=== PATIENT | female | born 1995 | race Caucasian/White ===

== ENCOUNTER → 2017-01-16 | Outpatient (CLI) | payer BC, OTHER ==
[~2017-01-16] MED LIST: CEFD300C3 PO; DOCU100C37 PO; DOXY1TAB3 PO; FAMO-119 PO; HYDR-2890 PO; HYDR-3720 PO; HYDR-3781 PO; IBP600T1 PO; IBUP-1780 PO; MTF500T PO; ONDN4T PO; OXYC-465 PO; SPRINTEC PO
--- NOTE | 2017-01-16 10:09 | Diagnostic Imaging Report ---
PROCEDURE: US Thyroid. TECHNIQUE: Multiple real-time grayscale images were obtained of the thyroid in various projections. Thyroid ultrasound. INDICATION: Thyromegaly. The previous thyroid ultrasound exam performed on 09/01/2014, noted that the thyroid gland was prominent but homogeneous in appearance. There is no discrete solid or cystic mass within either lobe. On this study the overall appearance of the thyroid gland has not changed significantly. The right lobe measures 5.3 x 1.7 x 1.5 cm while the left lobe is estimated to be 5.4 x 1.6 x 1.6 cm (normal gland size 4 to 5 x 2 x 2 cm or less.) As on the previous study the thyroid gland is homogeneous. There is no discrete solid or cystic mass within either lobe. IMPRESSION: The thyroid gland is prominent but stable in appearance when compared to the prior exam. There is still no discrete solid or cystic mass within either lobe. Dictated by: Dictated on workstation # [id number]
--- NOTE | 2017-01-16 10:30 | Diagnostic Imaging Report ---
PROCEDURE: US Gallbladder. TECHNIQUE: Multiple real-time grayscale images were obtained over the right upper quadrant in various projections. INDICATION: Right upper quadrant pain. FINDINGS: The previous abdominal ultrasound exam performed on 01/04/2016 fails to show any sign of cholelithiasis or acute cholecystitis. On this study, the gallbladder does not appear to be abnormally distended. There is still no evidence for cholelithiasis or acute cholecystitis. The common bile duct is not dilated measuring 3 MM. The liver, pancreas, and right kidney are within normal limits. There is no mass or free fluid collection in the right upper quadrant. IMPRESSION: 1. There is no acute abnormality of the right upper quadrant. 2. If clinical concern regarding an underlying abnormality of the gallbladder persists and further imaging is desired, then nuclear medicine hepatobiliary scan would be recommended for additional study. Dictated by: Dictated on workstation # [id number]
== END ==
LOC: RAD 08:30
PROVIDERS: ATTEND Nurse Practitioner Family
DX: E01.0 Iodine-deficiency related diffuse (endemic) goiter (principal); R10.11 Right upper quadrant pain
CPT/HCPCS: 76536; 76705

== ENCOUNTER → 2017-02-07 | Outpatient (CLI) | payer BC, OTHER ==
[~2017-02-07] MED LIST changes: +CATHETER FLUSH 10 ML SYR IV PRN
--- NOTE | 2017-02-07 15:00 | Diagnostic Imaging Report ---
EXAMINATION: HIDA with EF measurements Indication: Abdominal pain TECHNIQUE: After the intravenous administration of 5.2 mCi of Tc 99m Choletec, imaging over the abdomen was obtained. This was followed by administration of Ensure orally to stimulate intrinsic CCK secretion, followed by continued imaging with ejection fraction measured. FINDINGS: There is homogeneous uptake in the liver with prompt bile duct and gallbladder filling seen. Bowel activity is seen at 50 minutes. Based on further imaging and gallbladder area of interest activity measurements after the administration of Ensure, the gallbladder ejection fraction is estimated at 36%. IMPRESSION: 1. Normal hepatobiliary uptake and Gallbladder filling. 2. Borderline biliary dyskinesia. Borderline abnormal gallbladder ejection fraction. Correlate clinically. Dictated by: Dictated on workstation # [id number]
== END ==
LOC: CARD 12:01
PROVIDERS: ATTEND Internal Medicine
DX: R10.13 Epigastric pain (principal)
CPT/HCPCS: 78227

== ENCOUNTER 2017-03-15 12:57 | Outpatient (CLI) | payer BC ==
[~2017-03-15] VITALS: Ht 157.5 cm; Wt 67.1 kg
[~2017-03-15 12:57] MED LIST changes: -CATHETER FLUSH 10 ML SYR IV PRN
[2017-03-15] MEDS ORDERED: NORG1TAB14 PO (13:06)
== END 2017-03-15 13:26 | disposition home or self-care (01) ==
LOC: PREOP 12:57
PROVIDERS: ATTEND Obstetrics & Gynecology
DX: Z01.818 Encounter for other preprocedural examination (principal); Z11.2 Encounter for screening for other bacterial diseases; N80.0 Endometriosis of uterus; D64.9 Anemia, unspecified
CPT/HCPCS: 87081

== ENCOUNTER 2017-03-22 10:30 | Day surgery (SDC) | payer BC ==
[~2017-03-22] VITALS: Ht 157.5 cm; Wt 67.1 kg
[~2017-03-22 10:30] MED LIST changes: +NORG1TAB14 PO
[2017-03-22] MEDS ORDERED: FAMOTIDINE 20MG/2ML IV (PEPCID) IV ONE (11:00)
[2017-03-22] MEDS ORDERED: NS (IVPB) 50 ML ONE (11:00)
[2017-03-22] MEDS ORDERED: ceFAZolin 1,000 MG (ANCEF) VIAL ONE (11:00)
[2017-03-22] MEDS ORDERED: ONDANSETRON 4 MG/2 ML (SDV) Z0FRAN IV ONE (11:00)
[2017-03-22] MEDS ORDERED: SCOPOLAMINE 1.5 MG (TRANSDERM-SCOP) PATCH TOP ONE (11:00)
[2017-03-22 11:08] LABS: BASOPHILS % (AUTO) 0 % (0-10); EOSINOPHILS # (AUTO) 0.1 10^3/uL (0.0-0.3); EOSINOPHILS % (AUTO) 1 % (0-10); LYMPHOCYTES # (AUTO) 1.3 X 10^3 (1.0-4.0); LYMPHOCYTES % (AUTO) 28 % (12-44); MEAN CORPUSCULAR HEMOGLOBIN 28 PG (25-34); MEAN CORPUSCULAR HGB CONC 33 G/DL (32-36); MEAN CORPUSCULAR VOLUME 86 FL (80-99); MEAN PLATELET VOLUME 10.5 FL (7.4-10.4); MONOCYTES # (AUTO) 0.4 X 10^3 (0.0-1.0); MONOCYTES % (AUTO) 9 % (0-12); NEUTROPHILS # (AUTO) 2.8 X 10^3 (1.8-7.8); NEUTROPHILS % (AUTO) 61 % (42-75); PLATELET COUNT 267 10^3/uL (130-400); RED BLOOD COUNT 4.12 10^6/uL (4.35-5.85); RED CELL DISTRIBUTION WIDTH 13.6 % (10.0-14.5); WHITE BLOOD COUNT 4.6 10^3/uL (4.3-11.0)
[2017-03-22] MEDS ORDERED: ceFAZolin 1,000 MG (ANCEF) VIAL IV ONE (11:15)
[2017-03-22 11:20] LABS: INR 0.9 (0.8-1.4); PROTHROMBIN TIME PATIENT 12.2 SEC (12.2-14.7)
[2017-03-22] MEDS: LACTATED RINGERS 1,000 ML IV PRN ×3 (11:24→14:12)
[2017-03-22 11:26] LABS: ANION GAP 8 MMOL/L (5-14); BLOOD UREA NITROGEN 9 MG/DL (7-18); BUN/CREATININE RATIO 15; CALCIUM 8.6 MG/DL (8.5-10.1); CARBON DIOXIDE 23 MMOL/L (21-32); CHLORIDE 108 MMOL/L (98-107); GFR ESTIMATED > 60; GLUCOSE 84 MG/DL (70-105); POTASSIUM 3.8 MMOL/L (3.6-5.0); SODIUM 139 MMOL/L (135-145)
[2017-03-22] MEDS ORDERED: MIDAZOLAM 2 MG/2 ML (VERSED) VIAL IVP NR (11:35)
[2017-03-22] MEDS ORDERED: ROCURONIUM 50 MG/5 ML (ZEMURON) VIAL IV ONE (11:37)
[2017-03-22] MEDS ORDERED: fentaNYL INJECTION 250 MCG/5 ML AMP ONE (11:37)
[2017-03-22] MEDS ORDERED: proPOfol 200 MG/20 ML (DIPRIVAN) VIAL IV ONE (11:37)
[2017-03-22] MEDS ORDERED: MIDAZOLAM 2 MG/2 ML (VERSED) VIAL ONE (11:37)
[2017-03-22] MEDS ORDERED: LIDOCAINE PF 2% 5 ML (XYLOCAINE) VIAL ONE (11:40)
[2017-03-22] MEDS ORDERED: BUP/EPI 0.5% 1:200,000 (SENSORCAINE) 30 ML VIAL ONE (11:57)
[2017-03-22] MEDS ORDERED: BUPIVACAINE 0.5% 30 ML (SENSORCAINE) VIAL ONE (11:58)
--- NOTE | 2017-03-22 12:01 | Progress Note-Pre Operative ---
Pre-Operative Progress Note H&P Reviewed The H&P was reviewed, patient examined and no changes noted. Time Seen by Provider: 12:00 Date H&P Reviewed: Mar 22, 2017 Time H&P Reviewed: 12:00 Pre-Operative Diagnosis: biliary DyAUBREY Hernandez DO Mar 22, 2017 12:01
[2017-03-22 12:12] VITALS: BP 110/72
[2017-03-22] MEDS ORDERED: DEXAMETHASONE PF 10 MG/ML (DECADRON) VIAL ONE (12:22)
[2017-03-22] MEDS ORDERED: SEVOFLURANE (ULTANE) 15 ML INHAL SOLN ONE (13:25)
[2017-03-22] MEDS ORDERED: ONDANSETRON 4 MG/2 ML (SDV) Z0FRAN ONE (13:25)
[2017-03-22] MEDS ORDERED: LACTATED RINGERS 2,000 ML IV ONE (13:25)
[2017-03-22] MEDS ORDERED: GLYCOPYRROLATE 0.2 MG/ML (ROBINUL) 2 ML VIAL ONE (13:26)
[2017-03-22] MEDS ORDERED: NEOSTIGMINE (BLOXIVERZ ) 1 MG/1ML 10 ML VIAL ONE (13:26)
--- NOTE | 2017-03-22 13:55 | Discharge Instructions ---
Discharge Instructions Discharge Medications New, Converted or Re-Newed RX: Other Patient Instructions Patient Instructions: as directed Return to The Hospital For: as directed Activity & Diet Discharge Diet: No Restrictions Activity as Tolerated: No Orders-Post D/C & Referrals Follow Up Appt: Call to make follow up appt. for patient in 1 weeks. Activity: Rest for 24 hours, than as tolerated. Wound Care: May remove Band-Aid tomorrow. Replace as desired. Keep incisions clean and dry. Wash daily with soap and water. use pain medications as prescribed by Dr. Suzanne nova Diet: As tolerated-Clear Liquids only if nauseated. May shower or tub bathe as desired. No driving for 24 hours, no alcoholic beverages for 24 hours, and nothing per vagina (no tampons, douching, or intercourse) for 2 weeks. Patient to return to the clinic as soon as possible for: Temperature greater than 101F, Severe Pain, Foul discharge from incision or vagina, Excessive Bleeding (more than a period). ALICIA OWENS MD Mar 22, 2017 1:55 pm
--- NOTE | 2017-03-22 13:57 | Progress Note-Post Operative ---
Post-Operative Progess Note Surgeon (s)/Crusher Screen Repairer (s) Surgeon ALICIA OWENS MD Crusher Screen Repairer: Zo Nunez are in Pre-Operative Diagnosis pelvic pelvic pain left ovarian cyst is soft uterine bleeding Post-Operative Diagnosis time with endometriosis and resolved left ovarian corpus luteal cyst Procedure & Operative Findings Date of Procedure 03/22/17 Procedure Performed/Findings upper scopic treatment of endometriosis laparoscopic pelvic adhesio lysis laparoscopic biopsy right ovarian cystic mass Anesthesia Type Gen. Estimated Blood Loss Estimated blood loss (mL): minimal Specimens/Packing Specimens Removed biopsy from right ovary. Endometrial curettings Packing: none ALICIA OWENS MD Mar 22, 2017 1:57 pm
[2017-03-22] MEDS ORDERED: HYDROmorphone (DILAUDID) 2 MG/ML VIAL IVP PRN (14:00)
[2017-03-22] MEDS ORDERED: PROMETHAZINE INJ 25 MG/ML (PHENERGAN) AMP IVP PRN (14:00)
[2017-03-22] MEDS: morphine INJ 10 MG/ML 1ML (SYR OR VIAL) IVP PRN ×2 (14:00→14:06)
[2017-03-22] MEDS ORDERED: ONDANSETRON 4 MG/2 ML (SDV) Z0FRAN IVP PRN ×2 (14:00→15:45)
[2017-03-22] MEDS: MEPERIDINE (DEMEROL) INJ 50 MG/ML IVP PRN ×2 (14:12→14:16)
[2017-03-22] MEDS ORDERED: KETOROLAC 30 MG/ML VIAL IVP ONE (14:30)
[2017-03-22 14:50] VITALS: BP 110/69
[2017-03-22 15:20] VITALS: BP 121/71
[2017-03-22 15:50] VITALS: BP 115/70
[2017-03-22 16:45] VITALS: BP 115/70
--- NOTE | 2017-03-22 22:36 | OPERATIVE REPORT ---
DATE OF SERVICE: 03/22/2017 PREOPERATIVE DIAGNOSES: Chronic pelvic pain, likely endometriosis and dysfunctional uterine bleeding/menorrhagia and history of left ovarian cyst. POSTOPERATIVE DIAGNOSES: Chronic pelvic pain, likely endometriosis and dysfunctional uterine bleeding/menorrhagia and history of left ovarian cyst with resolved left ovarian cyst, endometriosis in the cul de sac and pedunculated mass on the right ovary. OPERATIVE PROCEDURE: Laparoscopic removal of a right ovarian pedunculated mass, destruction of endometriosis, as well as dilation and curettage and adhesiolysis. OPERATIVE DESCRIPTION: With the patient in the supine position, under satisfactory general anesthesia, she had undergone laparoscopic cholecystectomy at the hands of Dr. Prado. Dr. Prado had finished her procedure and turned the patient over to tn. The patient remained supine. She was placed in the dorsal lithotomy position and the perineum exposed. The urinary bladder was emptied with a straight catheter. The weighted speculum placed in the posterior point of the vagina, the cervix exposed and grasped anteriorly with a single tooth tenaculum. The uterus was sounded to 9 cm with uterine sound. The cervix was then serially dilated with Mathieu dilators to accommodate a sharp curette which was introduced and the uterine cavity curettaged in all 4 quadrants to a good uterine cry. That tissue was removed and sent to pathology for permanent section labeled as endometrial curettings. Now, the uterine manipulator was placed, the bulb filled with 4 mL of air. The tenaculum and speculum were removed. The patient was brought into low dorsal lithotomy position. With the ports already in place at the umbilicus and in the right upper quadrant, left upper quadrant and a second right upper quadrant port, the upper quadrant ports were 5 mm, the umbilical port was a 12 mm. Using umbilical port, the laparoscope was introduced. The patient was placed in Trendelenburg, allowing the bowel to spill up out of the pelvis. The pelvis was examined. The uterus was elevated. There were endometriosis implants in the right ovarian fossa. There were adhesions to the posterior lower uterine segment. There were endometriosis implants in the left ovarian fossa. There was a pedunculated cystic appearing mass attached to the right ovary. The laparoscope was rotated. The cecum was examined. The appendix had been removed remotely. Laparoscope was rotated upright and examined; there was no abnormal pathology that appeared. Laparoscope was brought back to the pelvis. Using EndoShears and a grasper, the pedunculated mass on the right ovary was grasped and elevated and removed sharply. That specimen was sent to pathology as a biopsy of right ovarian tissue. The cul de sac was examined. There were adhesions to the posterior lower uterine segment segment. These were taken down with very careful and meticulous dissection, being sure to avoid any thermal or traumatic injury to the bowel and to the other adjacent structures. With that freed, endometriosis implants in the right ovarian fossa were touched with electrocautery to destroy them. There were multiple implants in the range of 8 or 10. There were several implants in the left ovarian fossa; these were touched in the same manner. There was a small Vishal-Masters window in the cul de sac, but there appeared to be no nodular lesions and no overt pathology, so that was left alone. The uterus had some endometriosis implants on its posterior surface. These were touched with electrocautery to destroy them. The ovaries appeared normal, as were the fallopian tubes. There did appear to be a cyst on the left ovary; however, this ended up being a follicular cyst on the caudal pole at the ovary. The larger cyst that had been noted on ultrasound prior to this procedure had resolved. It was thought that this could be a corpus luteal cyst, and that confirmed that suspicion. With the pelvis fully treated for endometriosis with no remaining abnormal pathology, the pelvis was irrigated. The irrigant was aspirated out and the procedure was terminated. The patient was brought out of Trendelenburg. The abdomen was evacuated of the insufflation gas in the process of removing the ports under direct vision. There was no bleeding noted at any of the port sites. The fascia at the umbilical port site was closed with a figure-of-8 suture of 2-0 Vicryl. The skin incision was closed with interrupted sutures with 3-0 nylon. The uterine manipulator bulb was drained. The instrument was removed from the vagina. The speculum was replaced in the vagina, the cervix examined for hemostasis, which was complete. Sponge and needle counts were correct at the end of this procedure. Estimated blood loss for the procedure was minimal. The patient tolerated the procedure well and was transferred to the recovery room in stable condition with plans for discharge home PAR. Job ID: [id number] DocumentID: [id number] Dictated Date: 03/22/2017 13:39:05 Superintendent Transmission Date: 03/22/2017 22:35:50 Dictated By: ALICIA OWENS MD MTDD
--- NOTE | 2017-03-28 11:59 | OPERATIVE REPORT ---
DATE OF SERVICE: PREOPERATIVE DIAGNOSIS: Biliary dyskinesia. POSTOPERATIVE DIAGNOSIS: Biliary dyskinesia. SURGEON: Rebecca Abreu M.D. ANESTHESIA: General. INDICATION FOR PROCEDURE: The patient is a 21-year-old female who complained of abdominal pain, nausea and vomiting. She was noted to have biliary dyskinesia on HIDA scan. Case was discussed with patient. Informed consent was obtained for procedure. The patient also has a history of endometriosis. She consulted with Dr. Spangler who is her funeral arrangement director and he also will perform exploration of the pelvis and do needed procedures. PROCEDURE: Laparoscopic cholecystectomy. DESCRIPTION OF PROCEDURE: The patient was prepped and draped in the usual sterile manner. The abdomen was entered using a 5 mm OptiPort in the left upper quadrant. Pneumoperitoneum was established. A generalized examination of the abdomen was performed. Two other 5 mm ports were placed in the right upper quadrant and a 12 mm port was placed in at the site of the umbilicus. Next, the fundus of the gallbladder was grasped and retracted cephaladly. The infundibulum was grasped and retracted laterally using the [place]. The cystic duct was dissected circumferentially. 3 clips were placed proximal, one distal. The cystic duct was then cut. Next, the attention was placed to the cystic artery. 3 clips were placed proximal, one distal. The cystic artery was then cut. Next using electrocautery, the gallbladder was dissected off the liver bed. After this was done, it was placed in a bag and removed from the abdominal cavity. A second look was taken at the liver bed. Hemostasis looked good. I used a little irrigation and suction. All ports remained in place so Dr. Spangler will then start his part. Job ID: [id number] DocumentID: [id number] Dictated Date: 03/22/2017 13:03:29 Bench Assembler Date: 03/22/2017 22:15:17 Dictated By: REBECCA ABREU DO [facility]ITALJake
== END 2017-03-22 16:45 | disposition home or self-care (01) ==
LOC: SDC 10:30
PROVIDERS: ATTEND Obstetrics & Gynecology
DX: N80.0 Endometriosis of uterus (principal); N80.1 Endometriosis of ovary; N83.02 Follicular cyst of left ovary; N83.8 Other noninflammatory disorders of ovary, fallopian tube and broad ligament; N93.8 Other specified abnormal uterine and vaginal bleeding; N92.0 Excessive and frequent menstruation with regular cycle; N73.6 Female pelvic peritoneal adhesions (postinfective); K81.1 Chronic cholecystitis
CPT/HCPCS: 36415; 80048; 82962; 84703; 85025; 85610; 88304; 88305

== ENCOUNTER 2017-10-19 20:15 | Emergency (ER) | payer BC ==
[~2017-10-19] VITALS: Ht 157.5 cm; Wt 64.9 kg
--- OUTSIDE RECORDS SUMMARY | 2017-10-19 20:22 | XMS REPORT | Continuity of Care Document ---
Author Author [facility] Address Unknown Phone Unavailable Allergies Active Description Code Type Severity Reaction Onset Reported/Identified Relationship to Patient Clinical Status Yes No Known Drug Allergies [id number] Drug Allergy Unknown N/A 03/15/2017 Medications There is no data. Problems Date Dx Coded Attending Type Code Diagnosis Diagnosed By 10/05/2013 ALICIA OWENS MD, Ot 256.4 POLYCYSTIC OVARIES 10/05/2013 ALICIA OWENS MD Ot 543.0 HYPERPLASIA OF APPENDIX 10/05/2013 ALICIA OWENS MD Ot 617.3 PELV PERIT ENDOMETRIOSIS 04/07/2014 ANIYAH EISENBERG DO V04.89 GARDASIL (HPV) DX 08/27/2014 STEPHEN JUAREZ CONTRACTS ADMINISTRATOR Ot 790.29 09/29/2014 ALICIA OWENS MD Ot 568.0 PERITONEAL [id number]/INF 09/29/2014 ALICIA OWENS MD Ot 617.1 OVARIAN ENDOMETRIOSIS 11/22/2014 STEPHEN JUAREZ CONTRACTS ADMINISTRATOR Ot 536.8 11/22/2014 STEPHEN JUAREZ CONTRACTS ADMINISTRATOR Ot 789.00 11/22/2014 STEPHEN JUAREZ CONTRACTS ADMINISTRATOR Ot 625.9 11/22/2014 ALICIA OWENS MD Ot 285.9 11/22/2014 ALICIA OWENS MD Ot 617.9 11/22/2014 ALICIA OWENS MD Ot 625.9 11/22/2014 ALICIA OWENS MD Ot V72.63 11/22/2014 ALICIA OWENS MD Ot V74.8 11/22/2014 STEPHEN JUAREZ CONTRACTS ADMINISTRATOR Ot 790.29 11/22/2014 STEPHEN JUAREZ CONTRACTS ADMINISTRATOR Ot 536.8 11/22/2014 STEPHEN JUAREZ CONTRACTS ADMINISTRATOR Ot 789.00 11/22/2014 STEPHEN JUAREZ CONTRACTS ADMINISTRATOR Ot 625.9 11/22/2014 RGACIELA PUGH, ALICIA Mccartney Ot 285.9 11/22/2014 GRACIELA PUGH, ALICIA Mccartney Ot 617.9 11/22/2014 GRACIELA PUGH, ALICIA Mccartney Ot 625.9 11/22/2014 GRACIELA PUGH, ALICIA Mccartney Ot V72.63 11/22/2014 GRACIELA PUGH, ALICIA Mccartney Ot V74.8 11/22/2014 STEPHEN JUAREZ CONTRACTS ADMINISTRATOR Ot 790.29 2014 STEPHEN JUAREZ CONTRACTS ADMINISTRATOR Ot 536.8 2014 STEPHEN JUAREZ CONTRACTS ADMINISTRATOR Ot 789.00 2014 STEPHEN JUAREZ CONTRACTS ADMINISTRATOR Ot 625.9 2014 GRACIELA PUGH, ALICIA Mccartney Ot 285.9 2014 GRACIELA PUGH, ALICIA Mccartney Ot 617.9 2014 GRACIELA PUGH, ALICIA Mccartney Ot 625.9 2014 GRACIELA PUGH, ALICIA Mccartney Ot V72.63 2014 GRACIELA PUGH, ALICIA Mccartney Ot V74.8 2014 STEPHEN JUAREZ CONTRACTS ADMINISTRATOR Ot 790.29 01/04/2016 SWATHI CRISOSTOMO Ot K21.9 GASTRO-ESOPHAGEAL REFLUX DISEASE WITHOUT 01/04/2016 SWATHI CRISOSTOMO Ot O26.892 OTH RELATED CONDITIONS, SECOND 01/04/2016 SWATHI CRISOSTOMO Ot O99.611 DISEASES OF THE DGSTV SYS COMP 01/04/2016 SWATHI CRISOSTOMO Ot R10.31 RIGHT LOWER QUADRANT PAIN 01/04/2016 SWATHI CRISOSTOMO Ot R11.2 NAUSEA WITH VOMITING, UNSPECIFIED 01/04/2016 SWATHI CRISOSTOMO Ot R19.7 DIARRHEA, UNSPECIFIED 01/04/2016 SWATHI CRISOSTOMO Ot Z3A.15 15 WEEKS GESTATION OF 01/05/2016 SWATHI CRISOSTOMO Ot K21.9 01/05/2016 SWATHI CRISOSTOMO Ot O26.892 01/05/2016 SWATHI CRISOSTOMO Ot O99.611 01/05/2016 SWATHI CRISOSTOMO Ot R10.31 01/05/2016 SWATHI CRISOSTOMO Ot R11.2 01/05/2016 SWATHI CRISOSOTMO Ot R19.7 01/05/2016 SWATHI CRISOSTOMO Ot Z3A.15 01/06/2016 STEPHEN JUAREZ CONTRACTS ADMINISTRATOR Ot 536.8 01/06/2016 STEPHEN JUAREZ CONTRACTS ADMINISTRATOR Ot 789.00 01/06/2016 STEPHEN JUAREZ CONTRACTS ADMINISTRATOR Ot 625.9 01/06/2016 ALICIA OWENS MD Ot 285.9 01/06/2016 ALICIA OWENS MD Ot 617.9 01/06/2016 ALICIA OWENS MD Ot 625.9 01/06/2016 ALICIA OWENS MD Ot V72.63 01/06/2016 ALICIA OWENS MD Ot V74.8 01/06/2016 STEPHEN JUAREZ CONTRACTS ADMINISTRATOR Ot 790.29 01/22/2016 SWATHI CRISOSTOMO Ot O21.0 MILD HYPEREMESIS GRAVIDARUM 01/22/2016 SWATHI CRISOSTOMO Ot O23.42 UNSP INFCT OF URINARY TRACT IN 01/22/2016 SWATHI CRISOSTOMO Ot Z3A.17 17 WEEKS GESTATION OF 02/28/2016 STEPHEN JUAREZ CONTRACTS ADMINISTRATOR Ot 536.8 STOMACH FUNCTION DIS NEC 02/28/2016 STEPHEN JUAREZ CONTRACTS ADMINISTRATOR Ot 789.00 ABDOMINAL PAIN, UNSPECIFIED SITE 02/28/2016 STEPHEN JUAREZ CONTRACTS ADMINISTRATOR Ot 625.9 FEM GENITAL SYMPTOMS NOS 02/28/2016 ALICIA OWENS MD Ot 285.9 ANEMIA NOS 02/28/2016 ALICIA OWENS MD Ot 617.9 ENDOMETRIOSIS NOS 02/28/2016 ALICIA OWENS MD Ot 625.9 FEM GENITAL SYMPTOMS NOS 02/28/2016 ALICIA OWENS MD, Ot V72.63 PRE-PROCEDURAL LABORATORY EXAMINATION 02/28/2016 ALICIA OWENS MD, Ot V74.8 SCREEN-BACTERIAL DIS NEC 02/28/2016 CHARIS JUAREZRICIA L CONTRACTS ADMINISTRATOR Ot 790.29 OTHER ABNORMAL GLUCOSE 02/28/2016 CHARIS JUAREZRICIA L CONTRACTS ADMINISTRATOR Ot 240.9 GOITER NOS 02/28/2016 ALICIA OWENS MD Ot 617.9 ENDOMETRIOSIS NOS 02/28/2016 ALICIA OWENS MD Ot 625.9 FEM GENITAL SYMPTOMS NOS 02/28/2016 ALICIA OWENS MD, Ot V72.84 EXAM PRE-OPERATIVE NOS 02/28/2016 ALICIA OWENS MD Ot V74.8 SCREEN-BACTERIAL DIS NEC 03/02/2016 KARLA JUAREZIA L CONTRACTS ADMINISTRATOR Ot 536.8 STOMACH FUNCTION DIS NEC 03/02/2016 CHARIS JUAREZRICIA L CONTRACTS ADMINISTRATOR Ot 789.00 ABDOMINAL PAIN, UNSPECIFIED SITE 03/02/2016 KARLA JUAREZIA L CONTRACTS ADMINISTRATOR Ot 625.9 FEM GENITAL SYMPTOMS NOS 03/02/2016 ALICIA OWENS MD Ot 285.9 ANEMIA NOS 03/02/2016 ALICIA OWENS MD Ot 617.9 ENDOMETRIOSIS NOS 03/02/2016 ALICIA OWENS MD Ot 625.9 FEM GENITAL SYMPTOMS NOS 03/02/2016 ALICIA OWENS MD Ot V72.63 PRE-PROCEDURAL LABORATORY EXAMINATION 03/02/2016 ALICIA OWENS MD Ot V74.8 SCREEN-BACTERIAL DIS NEC 03/02/2016 CHARIS JUAREZRICIA L CONTRACTS ADMINISTRATOR Ot 790.29 OTHER ABNORMAL GLUCOSE 03/02/2016 CHARIS JUAREZRICIA L CONTRACTS ADMINISTRATOR Ot 240.9 GOITER NOS 03/02/2016 ALICIA OWENS MD Ot 617.9 ENDOMETRIOSIS NOS 03/02/2016 ALICIA OWENS MD Ot 625.9 FEM GENITAL SYMPTOMS NOS 03/02/2016 ALICIA OWENS MD Ot V72.84 EXAM PRE-OPERATIVE NOS 03/02/2016 ALICIA OWENS MD, Ot V74.8 SCREEN-BACTERIAL DIS NEC 05/15/2016 STEPHEN JUAREZ CONTRACTS ADMINISTRATOR Ot 536.8 STOMACH FUNCTION DIS NEC 05/15/2016 STEPHEN JUAREZ CONTRACTS ADMINISTRATOR Ot 789.00 ABDOMINAL PAIN, UNSPECIFIED SITE 05/15/2016 STEPHEN JUAREZ L CONTRACTS ADMINISTRATOR Ot 625.9 FEM GENITAL SYMPTOMS NOS 05/15/2016 ALICIA OWENS MD Ot 285.9 ANEMIA NOS 05/15/2016 ALICIA OWENS MD Ot 617.9 ENDOMETRIOSIS NOS 05/15/2016 ALICIA OWENS MD Ot 625.9 FEM GENITAL SYMPTOMS NOS 05/15/2016 ALICIA OWENS MD, Ot V72.63 PRE-PROCEDURAL LABORATORY EXAMINATION 05/15/2016 ALICIA OWENS MD Ot V74.8 SCREEN-BACTERIAL DIS NEC 05/15/2016 STEPHEN JUAREZ CONTRACTS ADMINISTRATOR Ot 790.29 OTHER ABNORMAL GLUCOSE 05/15/2016 STEPHEN JUAREZ CONTRACTS ADMINISTRATOR Ot 240.9 GOITER NOS 05/15/2016 ALICIA OWENS MD Ot 617.9 ENDOMETRIOSIS NOS 05/15/2016 ALICIA OWENS MD Ot 625.9 FEM GENITAL SYMPTOMS NOS 05/15/2016 ALICIA OWENS MD Ot V72.84 EXAM PRE-OPERATIVE NOS 05/15/2016 ALICIA OWENS MD Ot V74.8 SCREEN-BACTERIAL DIS NEC 05/15/2016 ALICIA OWENS MD Ot O47.03 FALSE LABOR BEFORE 37 COMPLETED WEEKS OF 05/15/2016 ALICIA OWENS MD, Ot Z3A.32 32 WEEKS GESTATION OF 05/17/2016 ALICIA OWENS MD, Ot O47.03 FALSE LABOR BEFORE 37 COMPLETED WEEKS OF 05/17/2016 ALICIA OWENS MD, Ot Z3A.32 32 WEEKS GESTATION OF 06/26/2016 ALICIA OWENS MD, Ot D64.9 ANEMIA, UNSPECIFIED 06/26/2016 GRACIELA MD, ALICIA G Ot O99.013 ANEMIA COMPLICATING , THIRD TRI 06/26/2016 ALICIA OWENS MD, Ot Z01.818 ENCOUNTER FOR OTHER PREPROCEDURAL EXAMIN 06/26/2016 ALICIA OWENS MD, Ot Z11.2 ENCOUNTER FOR SCREENING FOR OTHER BACTER 06/26/2016 ALIICA OWENS MD, Ot Z3A.00 WEEKS OF GESTATION OF NOT SPEC 06/27/2016 ALICIA OWENS MD, Ot D64.9 ANEMIA, UNSPECIFIED 06/27/2016 ALICIA OWENS MD, Ot O99.013 ANEMIA COMPLICATING , THIRD TRI 06/27/2016 ALICIA OWENS MD, Ot Z01.818 ENCOUNTER FOR OTHER PREPROCEDURAL EXAMIN 06/27/2016 ALICIA OWENS MD, Ot Z11.2 ENCOUNTER FOR SCREENING FOR OTHER BACTER 06/27/2016 ALICIA OWENS MD, Ot Z3A.00 WEEKS OF GESTATION OF NOT SPEC 07/01/2016 ALICIA OWENS MD, Ot O34.29 MATERNAL CARE DUE TO UTERINE SCAR FROM O 07/01/2016 ALICIA OWENS MD, Ot O99.824 STREPTOCOCCUS B CARRIER STATE COMPLICATI 07/01/2016 ALICIA OWENS MD Ot Z23 ENCOUNTER FOR IMMUNIZATION 07/01/2016 ALICIA OWENS MD, Ot Z37.0 SINGLE LIVE 07/01/2016 ALICIA OWENS MD, Ot Z3A.39 39 WEEKS GESTATION OF 07/02/2016 ALICIA OWENS MD, Ot D64.9 ANEMIA, UNSPECIFIED 07/02/2016 ALICIA OWENS MD, Ot O99.013 ANEMIA COMPLICATING , THIRD TRI 07/02/2016 ALICIA OWENS MD, Ot Z01.818 ENCOUNTER FOR OTHER PREPROCEDURAL EXAMIN 07/02/2016 ALICIA OWENS MD, Ot Z11.2 ENCOUNTER FOR SCREENING FOR OTHER BACTER 07/02/2016 ALICIA OWENS MD, Ot Z3A.00 WEEKS OF GESTATION OF NOT SPEC 07/02/2016 JUAREZ, STEPHEN L CONTRACTS ADMINISTRATOR Ot 536.8 STOMACH FUNCTION DIS NEC 07/02/2016 STEPHEN JUAREZ CONTRACTS ADMINISTRATOR Ot 789.00 ABDOMINAL PAIN, UNSPECIFIED SITE 07/02/2016 STEPEHN JUAREZ L CONTRACTS ADMINISTRATOR Ot 625.9 FEM GENITAL SYMPTOMS NOS 07/02/2016 ALICIA OWENS MD Ot 285.9 ANEMIA NOS 07/02/2016 ALICIA OWENS MD Ot 617.9 ENDOMETRIOSIS NOS 07/02/2016 ALICIA OWENS MD Ot 625.9 FEM GENITAL SYMPTOMS NOS 07/02/2016 ALICIA OWENS MD Ot V72.63 PRE-PROCEDURAL LABORATORY EXAMINATION 07/02/2016 ALICIA OWENS MD, Ot V74.8 SCREEN-BACTERIAL DIS NEC 07/02/2016 STEPHEN JUAREZ CONTRACTS ADMINISTRATOR Ot 790.29 OTHER ABNORMAL GLUCOSE 07/02/2016 STEPHEN JUAREZ CONTRACTS ADMINISTRATOR Ot 240.9 GOITER NOS 07/02/2016 ALICIA OWENS MD Ot 617.9 ENDOMETRIOSIS NOS 07/02/2016 ALICIA OWENS MD Ot 625.9 FEM GENITAL SYMPTOMS NOS 07/02/2016 ALICIA OWENS MD Ot V72.84 EXAM PRE-OPERATIVE NOS 07/02/2016 ALICIA OWENS MD Ot V74.8 SCREEN-BACTERIAL DIS NEC 09/12/2016 CODY CALIX MD Ot N39.0 URINARY TRACT INFECTION, SITE NOT SPECIF 09/26/2016 CODY CALIX MD Ot N39.0 URINARY TRACT INFECTION, SITE NOT SPECIF 01/17/2017 STEPHEN JUAREZ CONTRACTS ADMINISTRATOR Ot E01.0 IODINE-DEFICIENCY RELATED DIFFUSE (ENDEM 01/17/2017 STEPHEN JUAREZ CONTRACTS ADMINISTRATOR Ot R10.11 RIGHT UPPER QUADRANT PAIN 02/01/2017 STEPHEN JUAREZ L CONTRACTS ADMINISTRATOR Ot E01.0 IODINE-DEFICIENCY RELATED DIFFUSE (ENDEM 02/01/2017 STEPHEN JUAREZ CONTRACTS ADMINISTRATOR Ot R10.11 RIGHT UPPER QUADRANT PAIN 02/07/2017 CODY CALIX MD Ot N39.0 URINARY TRACT INFECTION, SITE NOT SPECIF 02/07/2017 KARLA JUAREZIA L CONTRACTS ADMINISTRATOR Ot E01.0 IODINE-DEFICIENCY RELATED DIFFUSE (ENDEM 02/07/2017 JUAREZSTEPHEN BRUNSON CONTRACTS ADMINISTRATOR Ot R10.11 RIGHT UPPER QUADRANT PAIN 02/08/2017 RAVINDER JUAREZ DO Ot R10.13 EPIGASTRIC PAIN 02/14/2017 LARRYSTEPHEN CONTRACTS ADMINISTRATOR Ot E01.0 IODINE-DEFICIENCY RELATED DIFFUSE (ENDEM 02/14/2017 LARRYSTEPHEN CONTRACTS ADMINISTRATOR Ot R10.11 RIGHT UPPER QUADRANT PAIN 02/14/2017 CODY CALIX MD, Ot N39.0 URINARY TRACT INFECTION, SITE NOT SPECIF 02/14/2017 LARRYSTEPHEN CONTRACTS ADMINISTRATOR Ot E01.0 IODINE-DEFICIENCY RELATED DIFFUSE (ENDEM 02/14/2017 LARRYSTEPHEN CONTRACTS ADMINISTRATOR Ot R10.11 RIGHT UPPER QUADRANT PAIN 02/14/2017 RAVINDER JUAREZ DO Ot R10.13 EPIGASTRIC PAIN 02/20/2017 RAVINDER JUAREZ DO Ot R10.13 EPIGASTRIC PAIN 02/28/2017 RAVINDER JUAREZ DO Ot R10.13 EPIGASTRIC PAIN 03/22/2017 ALICIA OWENS MD, Ot K81.1 CHRONIC CHOLECYSTITIS 03/22/2017 ALICIA OWENS MD, Ot N73.6 FEMALE PELVIC PERITONEAL ADHESIONS (POST 03/22/2017 ALICIA OWENS MD, Ot N80.0 ENDOMETRIOSIS OF UTERUS 03/22/2017 ALICIA OWENS MD, Ot N80.1 ENDOMETRIOSIS OF OVARY 03/22/2017 ALICIA OWENS MD, Ot N83.02 FOLLICULAR CYST OF LEFT OVARY 03/22/2017 ALICIA OWENS MD, Ot N83.8 OTH NONINFLAMMATORY DISORD OF OVARY, FAL 03/22/2017 ALICIA OWENS MD, Ot N92.0 EXCESSIVE AND FREQUENT MENSTRUATION WITH 03/22/2017 ALICIA OWENS MD, Ot N93.8 OTHER SPECIFIED ABNORMAL UTERINE AND VAG 05/06/2017 RAVINDER JUAREZ DO Ot R10.13 EPIGASTRIC PAIN 05/15/2017 CODY CALIX MD Ot N39.0 URINARY TRACT INFECTION, SITE NOT SPECIF 05/15/2017 STEPHEN JUAREZ CONTRACTS ADMINISTRATOR Ot E01.0 IODINE-DEFICIENCY RELATED DIFFUSE (ENDEM 05/15/2017 STEPHEN JUAREZ CONTRACTS ADMINISTRATOR Ot R10.11 RIGHT UPPER QUADRANT PAIN Procedures Code Description Performed By Performed On [id number] EXTRACTION OF POC, LOW CERVICAL, OPEN AP 06/29/2016 Results Test Result Range Complete urinalysis with reflex to culture - 05/15/16 19:15 Urine color determination YELLOW NRG Urine clarity determination CLEAR NRG Urine pH measurement by test strip 7 5-9 Specific gravity of urine by test strip 1.015 1.016- 1.022 Urine protein assay by test strip, semi-quantitative NEGATIVE NEGATIVE Urine glucose detection by automated test strip NEGATIVE NEGATIVE Erythrocytes detection in urine sediment by light microscopy NEGATIVE NEGATIVE Urine ketones detection by automated test strip NEGATIVE NEGATIVE Urine nitrite detection by test strip NEGATIVE NEGATIVE Urine total bilirubin detection by test strip NEGATIVE NEGATIVE Urine urobilinogen measurement by automated test strip (mass/volume) NORMAL NORMAL Urine leukocyte esterase detection by dipstick 1+ NEGATIVE Automated urine sediment erythrocyte count by microscopy (number/high power field) NONE NRG Automated urine sediment leukocyte count by microscopy (number/high power field ) [HPF] NRG Bacteria detection in urine sediment by light microscopy FEW NRG Squamous epithelial cells detection in urine sediment by light microscopy 10-25 NRG Crystals detection in urine sediment by light microscopy NONE NRG Casts detection in urine sediment by light microscopy NONE NRG Mucus detection in urine sediment by light microscopy NEGATIVE NRG Complete urinalysis with reflex to culture YES NRG Bacterial urine culture - 05/15/16 19:15 URINE CULTURE RESULTS <10,000/ML NRG Methicillin resistant Staphylococcus aureus (MRSA) screening culture - 12:05 Methicillin resistant Staphylococcus aureus (MRSA) screening culture NEG NRG Blood type T Indirect antibody screen panel - 06/29/16 06:15 ABO+Rh group AP NRG Transfusion band number [id number] NRG Blood group antibody screen NEGATIVE NRG Complete blood count (CBC) with automated white blood cell (WBC) differential - 06/29/16 06:15 Blood leukocytes automated count (number/volume) 7.2 10*3/uL 4.3-11.0 Blood erythrocytes automated count (number/volume) 3.76 10*6/uL 4.35-5.85 Venous blood hemoglobin measurement (mass/volume) 10.8 g/dL 11.5-16.0 Blood hematocrit (volume fraction) 33 % 35-52 Automated erythrocyte mean corpuscular volume 87 [foz_us] 80-99 Automated erythrocyte mean corpuscular hemoglobin (mass per erythrocyte) 29 pg 25-34 Automated erythrocyte mean corpuscular hemoglobin concentration measurement ( mass/volume) 33 g/dL 32-36 Automated erythrocyte distribution width ratio 15.5 % 10.0-14.5 Automated blood platelet count (count/volume) 181 10*3/uL 130-400 Automated blood platelet mean volume measurement 12.0 [foz_us] 7.4-10.4 Automated blood neutrophils/100 leukocytes 68 % 42-75 Automated blood lymphocytes/100 leukocytes 23 % 12-44 Blood monocytes/100 leukocytes 9 % 0-12 Automated blood eosinophils/100 leukocytes 1 % 0-10 Automated blood basophils/100 leukocytes 0 % 0-10 Blood neutrophils automated count (number/volume) 4.9 10*3 1.8-7.8 Blood lymphocytes automated count (number/volume) 1.6 10*3 1.0-4.0 Blood monocytes automated count (number/volume) 0.6 10*3 0.0-1.0 Automated eosinophil count 0.1 10*3/uL 0.0-0.3 Automated blood basophil count (count/volume) 0.0 10*3/uL 0.0-0.1 Capillary blood glucose measurement by glucometer (mass/volume) - 06/30/16 19: 39 Capillary blood glucose measurement by glucometer (mass/volume) 115 mg/dL 70-110 Methicillin resistant Staphylococcus aureus (MRSA) screening culture - 13:20 Methicillin resistant Staphylococcus aureus (MRSA) screening culture NEG NRG Urine beta human chorionic gonadotropin (hCG) measurement - 03/22/17 10:15 Urine beta human chorionic gonadotropin (hCG) measurement NEGATIVE NEGATIVE Complete blood count (CBC) with automated white blood cell (WBC) differential - 03/22/17 10:55 Blood leukocytes automated count (number/volume) 4.6 10*3/uL 4.3-11.0 Blood erythrocytes automated count (number/volume) 4.12 10*6/uL 4.35-5.85 Venous blood hemoglobin measurement (mass/volume) 11.6 g/dL 11.5-16.0 Blood hematocrit (volume fraction) 35 % 35-52 Automated erythrocyte mean corpuscular volume 86 [foz_us] 80-99 Automated erythrocyte mean corpuscular hemoglobin (mass per erythrocyte) 28 pg 25-34 Automated erythrocyte mean corpuscular hemoglobin concentration measurement ( mass/volume) 33 g/dL 32-36 Automated erythrocyte distribution width ratio 13.6 % 10.0-14.5 Automated blood platelet count (count/volume) 267 10*3/uL 130-400 Automated blood platelet mean volume measurement 10.5 [foz_us] 7.4-10.4 Automated blood neutrophils/100 leukocytes 61 % 42-75 Automated blood lymphocytes/100 leukocytes 28 % 12-44 Blood monocytes/100 leukocytes 9 % 0-12 Automated blood eosinophils/100 leukocytes 1 % 0-10 Automated blood basophils/100 leukocytes 0 % 0-10 Blood neutrophils automated count (number/volume) 2.8 10*3 1.8-7.8 Blood lymphocytes automated count (number/volume) 1.3 10*3 1.0-4.0 Blood monocytes automated count (number/volume) 0.4 10*3 0.0-1.0 Automated eosinophil count 0.1 10*3/uL 0.0-0.3 Automated blood basophil count (count/volume) 0.0 10*3/uL 0.0-0.1 PT panel in platelet poor plasma by coagulation assay - 03/22/17 10:55 Prothrombin time (PT) in platelet poor plasma by coagulation assay 12.2 s 12.2-14.7 INR in platelet poor plasma or blood by coagulation assay 0.9 0.8-1.4 Whole blood basic metabolic panel - 03/22/17 10:55 Serum or plasma sodium measurement (moles/volume) 139 mmol/L 135-145 Serum or plasma potassium measurement (moles/volume) 3.8 mmol/L 3.6-5.0 Serum or plasma chloride measurement (moles/volume) 108 mmol/L 98-107 Carbon dioxide 23 mmol/L 21-32 Serum or plasma anion gap determination (moles/volume) 8 mmol/L 5-14 Serum or plasma urea nitrogen measurement (mass/volume) 9 mg/dL 7-18 Serum or plasma creatinine measurement (mass/volume) 0.60 mg/dL 0.60-1.30 Serum or plasma urea nitrogen/creatinine mass ratio 15 NRG Serum or plasma creatinine measurement with calculation of estimated glomerular filtration rate > NRG Serum or plasma glucose measurement (mass/volume) 84 mg/dL 70-105 Serum or plasma calcium measurement (mass/volume) 8.6 mg/dL 8.5-10.1 Capillary blood glucose measurement by glucometer (mass/volume) - 03/22/17 10: 55 Capillary blood glucose measurement by glucometer (mass/volume) 85 mg/dL 70-110 Encounters ACCT No. Visit Date/Time Discharge Status Pt. Type Provider Facility Loc./Unit Complaint [id number] 04/07/2014 15:26:00 04/07/2014 23:59:59 CLS Outpatient FAINA ANIYAH Stephenson [id number] 03/22/2017 10:30:00 03/22/2017 16:45:00 [facility] HISTORY OF ENDOMETRIOSIS, DUB, MASS IN UTERUS [id number] 03/15/2017 12:57:00 03/15/2017 13:26:00 DIS Outpatient ALICIA OWENS MD [facility] PREOP HISTORY ENDOMETRIOSIS, DUB, MASS IN UTERUS [id number] 02/07/2017 12:01:00 02/07/2017 23:59:59 CLS Outpatient RAVINDER JUAREZ DO [facility] CARD R10.13 [id number] 01/16/2017 08:30:00 01/16/2017 23:59:59 CLS Outpatient STEPHEN JUAREZ [facility] RAD RUQ PAIN, THYROMEGALY [id number] 09/11/2016 13:36:00 09/11/2016 23:59:59 CLS Outpatient OCDY CALIX MD [facility] RAD RECURRENT UTI [id number] 06/29/2016 05:55:00 07/01/2016 13:20:00 DIS Inpatient ALICIA OWENS MD [facility] LDRP BREECH,PRIMARY C- SECTION [id number] 06/26/2016 11:46:00 06/26/2016 12:10:00 DIS Outpatient ALICIA OWENS MD [facility] PREOP BREECH,PRIMARY C -SECTION [id number] 05/15/2016 19:03:00 05/15/2016 20:15:00 DIS Outpatient ALICIA OWENS MD [facility] WSo STOMACH PAIN [id number] 01/22/2016 11:10:00 01/22/2016 13:27:00 DIS Emergency SWATHI CRISOSTOMO [facility] ER VOMITING/16 WEEKS PREG [id number] 01/04/2016 16:41:00 01/04/2016 19:49:00 DIS Emergency SWATHI CRISOSTOMO [facility] ER ABD PAIN [id number] 09/29/2014 11:12:00 09/29/2014 17:30:00 DIS Out[facility] CHRONIC PELVIC PAIN [id number] 09/22/2014 13:21:00 09/22/2014 23:59:59 CLS Outpatient ALICIA OWENS MD [facility] PREOP CHRONIC PELVIC PAIN [id number] 09/01/2014 10:56:00 09/01/2014 23:59:59 CLS Outpatient STEPHEN JUAREZ [facility] RAD THYROMEGALY [id number] 08/09/2014 08:19:00 08/09/2014 23:59:59 CLS Outpatient STEPHEN JUAREZP [facility] LAB HYPERGLYCEMIA [id number] 10/05/2013 06:10:00 10/05/2013 12:58:00 DIS Outpatient [facility] CHRONIC PELVIC PAIN; POSSIBLE ENDOMETRIOSIS [id number] 09/30/2013 09:01:00 09/30/2013 23:59:59 CLS Outpatient ALICIA OWENS MD [facility] PREOP CHRONIC PELVIC PAIN; [id number] 09/15/2013 11:18:00 09/15/2013 23:59:59 CLS Outpatient STEPHEN JUAREZP [facility] RAD PELVIC PAIN [id number] 08/11/2013 10:09:00 08/11/2013 23:59:59 CLS Outpatient STEPHEN JUAREZ [facility] RAD ABD PAIN, DYSPEPSIA
[2017-10-19] MEDS ORDERED: NS IV 1000 ML 1,000 ML ONE (20:26)
[2017-10-19] MEDS ORDERED: ONDANSETRON 4 MG/2 ML (SDV) Z0FRAN ONE (20:26)
[2017-10-19] MEDS ORDERED: HYOSCYAMINE 0.125 MG (LEVSIN) TAB ONE (20:27)
[2017-10-19] MEDS ORDERED: NS IV 1000 ML 1,000 ML IV SCH (20:30)
[2017-10-19] MEDS ORDERED: ONDANSETRON 4 MG/2 ML (SDV) Z0FRAN IVP ONE (20:30)
[2017-10-19] MEDS ORDERED: HYOSCYAMINE 0.125 MG (LEVSIN) TAB PO ONE (20:30)
--- NOTE | 2017-10-19 20:30 | ED GI ---
General Chief Complaint: Abdominal/GI Problems Stated Complaint: N/V/D Source of Information: Patient Exam Limitations: No Limitations History of Present Illness Time Seen By Provider: 20:28 Initial Comments To ER with nausea, vomiting, watery diarrhea without blood or mucus in diffuse intermittent abdominal cramping. Symptoms began yesterday. No fevers or chills. She attempted to take in oral Zofran but states that she vomited after swallowing it. She was seen at urgent care yesterday for the same symptoms diagnosed with urinary tract infection and given Macrobid but she states that she is unable to take the Macrobid due to the nausea. Timing/Duration: 1-2 Days Severity/Quality: Cramping Location: Generalized Abdomen Radiation: No Radiation Allergies and Home Medications Allergies Coded Allergies: No Known Drug Allergies (Unverified , 03/15/17) Home Medications Norgestimate-Ethinyl Estradiol 1 Each Tablet, 1 EACH PO DAILY, (Reported) Review of Systems Constitutional: see HPI, No chills, No fever EENTM: No Symptoms Reported Respiratory: No Symptoms Reported Cardiovascular: No Symptoms Reported Gastrointestinal: See HPI, Diarrhea, Nausea, Vomiting Genitourinary: No Symptoms Reported Musculoskeletal: no symptoms reported Skin: no symptoms reported Psychiatric/Neurological: No Symptoms Reported Endocrine: No Symptoms Reported Hematologic/Lymphatic: No Symptoms Reported Past Xdlshcg-Cyqkex-Ynbnjs Hx Patient Social History Recent Foreign Travel: No Contact w/Someone Who Travel: No Recent Hopitalizations: No Seasonal Allergies Seasonal Allergies: No Surgeries Surgeries: Adenoidectomy, Appendectomy, Section, Tonsillectomy Reproductive System Hx Reproductive Disorders: Yes Sexually Transmitted Disease: No HIV/AIDS: No Female Reproductive Disorders: Endometriosis, Polycystic Ovarian Dis Genitourinary Genitourinary Disorders: UTI-Chronic HEENT Loss of Vision: Bilateral Hearing Impairment: Denies Blood Transfusions Adverse Reaction to a Blood Tr: No (N/A) Family Medical History Significant Family History: No Pertinent Family Hx Family Medial History: Alcoholism grandparents Cardiovascular disease grandparents Diabetes mellitus grandparents Hypertension grandparents Myocardial infarction grandparents Physical Exam Vital Signs VS - Last 72 Hours, by Label 10/19/17 10/19/17 10/19/17 10/19/17 20:20 21:00 21:30 22:00 Temp 98.8 Pulse 102 95 95 86 Resp 18 18 18 18 B/P (MAP) 132/76 (94) 128/70 100/58 105/58 Pulse Ox 98 99 98 99 O2 Delivery Room Air Room Air Room Air Room Air 10/19/17 22:30 Pulse 94 Resp 18 B/P (MAP) 108/61 Pulse Ox 99 O2 Delivery Room Air Capillary Refill : General Appearance: WD/WN, no apparent distress HEENT: PERRL/EOMI, normal ENT inspection Neck: non-tender, full range of motion Respiratory: normal breath sounds, no respiratory distress, no accessory muscle use Cardiovascular: regular rate, rhythm, no murmur Gastrointestinal: normal bowel sounds, non tender, soft Neurologic/Psychiatric: alert, normal mood/affect, oriented x 3 Skin: normal color, warm/dry Focused Exam Evaluation Lactate Level Laboratory Tests 10/19/17 21:10: Lactic Acid Level 0.73 Lactic Acid Level Laboratory Tests Test 10/19/17 21:10 Lactic Acid Level 0.73 MMOL/L (0.50-2.00) Progress/Results/Core Measures Results/Orders Lab Results Laboratory Tests Test 10/19/17 20:23 10/19/17 20:31 10/19/17 21:10 Range/Units White Blood Count 21.6 H 4.3-11.0 10^3/uL Red Blood Count 4.83 4.35-5.85 10^6/uL Hemoglobin 13.7 11.5-16.0 G/DL Hematocrit 39 35-52 % Mean Corpuscular Volume 81 80-99 FL Mean Corpuscular Hemoglobin 28 25-34 PG Mean Corpuscular Hemoglobin Concent 35 32-36 G/DL Red Cell Distribution Width 14.2 10.0-14.5 % Platelet Count 301 130-400 10^3/uL Mean Platelet Volume 10.0 7.4-10.4 FL Neutrophils (%) (Auto) 90 H 42-75 % Lymphocytes (%) (Auto) 5 L 12-44 % Monocytes (%) (Auto) 4 0-12 % Eosinophils (%) (Auto) 0 0-10 % Basophils (%) (Auto) 0 0-10 % Neutrophils # (Auto) 19.5 H 1.8-7.8 X 10^3 Lymphocytes # (Auto) 1.2 1.0-4.0 X 10^3 Monocytes # (Auto) 0.9 0.0-1.0 X 10^3 Eosinophils # (Auto) 0.0 0.0-0.3 10^3/uL Basophils # (Auto) 0.0 0.0-0.1 10^3/uL Neutrophils % (Manual) 73 % Lymphocytes % (Manual) 7 % Monocytes % (Manual) 4 % Eosinophils % (Manual) 2 % Basophils % (Manual) 0 % Band Neutrophils 14 % Blood Morphology Comment NORMAL Sodium Level 140 135-145 MMOL/L Potassium Level 4.1 3.6-5.0 MMOL/L Chloride Level 106 98-107 MMOL/L Carbon Dioxide Level 21 21-32 MMOL/L Anion Gap 13 5-14 MMOL/L Blood Urea Nitrogen 14 7-18 MG/DL Creatinine 0.68 0.60-1.30 MG/DL Estimat Glomerular Filtration Rate > 60 BUN/Creatinine Ratio 21 Glucose Level 107 H 70-105 MG/DL Calcium Level 9.5 8.5-10.1 MG/DL Total Bilirubin 0.5 0.1-1.0 MG/DL Aspartate Amino Transf (AST/SGOT) 20 5-34 U/L Alanine Aminotransferase (ALT/SGPT) 19 0-55 U/L Alkaline Phosphatase 112 40-136 U/L C-Reactive Protein High Sensitivity 0.23 0.00-0.50 MG/DL Total Protein 7.9 6.4-8.2 GM/DL Albumin 4.5 3.2-4.5 GM/DL Lipase 10 8-78 U/L Urine Color JESÚS H Urine Clarity SLIGHTLY CLOUDY Urine pH 5 5-9 Urine Specific [place] 1.030 H 1.016-1.022 Urine Protein 2+ H NEGATIVE Urine Glucose (UA) NEGATIVE NEGATIVE Urine Ketones 1+ H NEGATIVE Urine Nitrite POSITIVE H NEGATIVE Urine Bilirubin 2+ H NEGATIVE Urine Urobilinogen 4 H NORMAL MG/DL Urine Leukocyte Esterase 1+ H NEGATIVE Urine RBC (Auto) 1+ H NEGATIVE Urine RBC NONE /HPF Urine WBC 5-10 H /HPF Urine Squamous Epithelial Cells 5-10 /HPF Urine Crystals NONE /LPF Urine Bacteria FEW H /HPF Urine Casts NONE /LPF Urine Mucus SMALL H /LPF Urine Culture Indicated YES Urine Test NEGATIVE NEGATIVE Lactic Acid Level 0.73 0.50-2.00 MMOL/L My Orders Orders - ARIANA BENITEZ ACTUARIAL INTERN Cbc With Automated Diff (10/19/17 20:26) Comprehensive Metabolic Panel (10/19/17 20:26) Ua Culture If Indicated (10/19/17 20:26) Lipase (10/19/17 20:26) Urine Bedside (10/19/17 20:26) Saline Lock/Iv-Start (10/19/17 20:26) Ns Iv 1000 Ml (Sodium Chloride 0.9%) (10/19/17 20:30) Ondansetron Injection (Zofran Injectio (10/19/17 20:30) Hyoscyamine Sl Tablet (Levsin Sl Tablet) (10/19/17 20:30) Ondansetron Injection (Zofran Injectio (10/19/17 20:26) Ns Iv 1000 Ml (Sodium Chloride 0.9%) (10/19/17 20:26) Hyoscyamine Sl Tablet (Levsin Sl Tablet) (10/19/17 20:27) Manual Differential (10/19/17 20:23) Urine Culture (10/19/17 20:31) Hs C Reactive Protein (10/19/17 20:52) Lactic Acid Analyzer (10/19/17 20:52) Blood Culture (10/19/17 20:52) Ct Abdomen/Pelvis W (10/19/17 20:52) Iohexol Injection (Omnipaque 350 Mg/Ml 1 (10/19/17 21:00) Ns (Ivpb) (Sodium Chloride 0.9% Ivpb Bag (10/19/17 21:00) Hcg,Qualitative Urine (10/19/17 21:01) Promethazine Injection (Phenergan Injec (10/19/17 22:31) Medications Given in ED Current Medications Medications Dose Ordered Sig/Alix Route Start Time Stop Time Status Last Admin Dose Admin Hyoscyamine Sulfate 0.25 mg ONCE ONCE PO 10/19/17 20:30 10/19/17 20:31 DC 10/19/17 20:30 0.25 MG Iohexol 100 ml ONCE ONCE IV 10/19/17 21:00 10/19/17 21:01 UNV 10/19/17 21:50 100 ML Ondansetron HCl 4 mg ONCE ONCE IVP 10/19/17 20:30 10/19/17 20:31 DC 10/19/17 20:30 4 MG Sodium Chloride 100 ml ONCE ONCE IV 10/19/17 21:00 10/19/17 21:01 UNV 10/19/17 21:50 80 ML Vital Signs/I&O Vital Sign - Last 12Hours 10/19/17 10/19/17 10/19/17 10/19/17 20:20 21:00 21:30 22:00 Temp 98.8 Pulse 102 95 95 86 Resp 18 18 18 18 B/P (MAP) 132/76 (94) 128/70 100/58 105/58 Pulse Ox 98 99 98 99 O2 Delivery Room Air Room Air Room Air Room Air 10/19/17 22:30 Pulse 94 Resp 18 B/P (MAP) 108/61 Pulse Ox 99 O2 Delivery Room Air Diagnostic Imaging Diagonstic Imaging: CT Comments NAME: RAIMUNDO GALICIA [facility] REC#: [id number] PT STATUS: REG ER : 1995 PHYSICIAN: ARIANA BENITEZ ACTUARIAL INTERN ADMIT DATE: 10/19/17/ER Draft Date of Exam:10/19/17 CT ABDOMEN/PELVIS W PROCEDURE: CT abdomen and pelvis with contrast. TECHNIQUE: Multiple contiguous axial images were obtained through the abdomen and pelvis after administration of intravenous contrast. INDICATION: Nausea, vomiting and diarrhea. History of cholecystectomy, appendectomy and ovarian cyst. Comparison is made to the prior CT abdomen and pelvis from 09/11/2016. FINDINGS: Visualized lung bases appear clear. There is no pleural or pericardial effusion. There is a tiny cyst within the right hepatic lobe. This is unchanged. Liver otherwise unremarkable. The portal vein is patent. There has been previous cholecystectomy with no abnormal biliary dilatation. The pancreas is unremarkable. The spleen demonstrates no focal abnormality. There is no adrenal mass. The kidneys enhance normally and are nonobstructed. Small and large bowel normal in caliber without evidence of obstruction. There is, however, liquid stool demonstrated within the colon and there are a few fluid-filled loops of small bowel and there is a suggestion of some increased small bowel mucosal enhancement. Possibility of a gastroenteritis would be a primary consideration. There is no free air, free fluid or abscess. Urinary bladder unremarkable. Uterus unremarkable. There is an involuting right sided ovarian cyst. There is no adnexal mass. Aorta unremarkable. There is no acute osseous abnormality. IMPRESSION: 1. There is increased mucosal enhancement demonstrated throughout the small bowel. There is also liquid contents within the small bowel and colon which suggests liquid stool. Primary consideration would be that of a gastroenteritis. 2. Prior cholecystectomy without abnormal biliary dilatation 3. No free air, free fluid or abscess. Dictated on workstation # [id number] Dict: 10/19/172156 Trans: 10/19/172202 EMERALD [id number] Interpreted by: VINCE KNOTT MD Electronically signed by: Departure Communication (Admissions) Progress Notes 2245*- patient's white count was a little concerning that her CRP and lactic acid are normal. This leukocytosis is likely reactive to the vomiting that she' s been doing. We'll give a dose of Rocephin here to cover for her bladder infection. I did discuss with Dr. Rodriguez admission. She agrees with offering admission for observation, repeat labs in the morning for discharge to home. I discussed these options with the patient. She would prefer to receive the Rocephin here and then discharged to home and agrees to return for any worsening pain, nausea that prohibits her from taking oral antibiotics for the bladder infection or fevers. is at the bedside and he agrees as well. Impression Impression: Primary Impression: Gastroenteritis Additional Impression: Urinary tract infection Disposition: ADMITTED INPATIENT Condition: Stable Departure-Patient Inst. Decision time for Depature: 22:47 Referrals: ISELA AKINS MD (PCP) Primary Care Physician AUBREY ABREU DO (Family) Primary Care Physician Patient Instructions: [id number], Urinary Tract Infection, Adult (DC) Add. Discharge Instructions: 1. Go home and sleep tonight. Do not attempt to eat or drink anything. Tomorrow morning you may start sipping on clear liquids, Pedialyte would be a great choice. Restart her oral antibiotics tomorrow evening for the bladder infection. Starting tomorrow evening you may begin a Daphne diet which includes bananas rice applesauce and toast and this will add some bulk tear stools. If you're nausea is well controlled you may use [id number] Imodium to help with the diarrhea. Please return to the emergency room for any recurrent uncontrollable nausea and vomiting, fevers or chills or worsening pain. Scripts Ondansetron (Zofran Odt) 8 Mg Tab.rapdis 8 MG PO Q6H Y for NAUSEA/VOMITING-1ST LINE, #10 TAB Prov: ARIANA BENITEZ APRN 10/19/17 Work/School Note: Work Release Form Date Seen in the Emergency Department: Oct 19, 2017 Return to Work: Oct 22, 2017 Copy Copies To 1: ISELA AKINS MD, PETER J APRN Oct 19, 2017 20:30
[2017-10-19 20:32] LABS: BASOPHILS % (AUTO) 0 % (0-10); EOSINOPHILS % (AUTO) 0 % (0-10); HEMATOCRIT 39 % (35-52); HEMOGLOBIN 13.7 G/DL (11.5-16.0); LYMPHOCYTES # (AUTO) 1.2 X 10^3 (1.0-4.0); LYMPHOCYTES % (AUTO) 5 % (12-44); MEAN CORPUSCULAR HEMOGLOBIN 28 PG (25-34); MEAN CORPUSCULAR HGB CONC 35 G/DL (32-36); MEAN CORPUSCULAR VOLUME 81 FL (80-99); MONOCYTES # (AUTO) 0.9 X 10^3 (0.0-1.0); MONOCYTES % (AUTO) 4 % (0-12); NEUTROPHILS # (AUTO) 19.5 X 10^3 (1.8-7.8); NEUTROPHILS % (AUTO) 90 % (42-75); PLATELET COUNT 301 10^3/uL (130-400); RED BLOOD COUNT 4.83 10^6/uL (4.35-5.85); RED CELL DISTRIBUTION WIDTH 14.2 % (10.0-14.5); WHITE BLOOD COUNT 21.6 10^3/uL (4.3-11.0)
[2017-10-19 20:37] LABS: CLARITY,URINE SLIGHTLY CLOUDY; COLOR,URINE AMBER; GLUCOSE, URINE (UA) NEGATIVE (NEGATIVE); KETONES,URINE 1+ (NEGATIVE); LEUKOCYTE ESTERASE ,URINE 1+ (NEGATIVE); NITRITE,URINE POSITIVE (NEGATIVE); PH,URINE 5 (5-9); PROTEIN,URINE 2+ (NEGATIVE); UROBILINOGEN,URINE 4 MG/DL (NORMAL)
[2017-10-19 20:45] LABS: BAND NEUTROPHILS 14 %; BASOPHILS % (MANUAL) 0 %; EOSINOPHILS % (MANUAL) 2 %; LYMPHOCYTES % (MANUAL) 7 %; MONOCYTES % (MANUAL) 4 %; NEUTROPHILS % (MANUAL) 73 %; RBC MORPH NORMAL
[2017-10-19 20:48] LABS: BACTERIA,URINE FEW /HPF; BILIRUBIN,URINE 2+ (NEGATIVE)
[2017-10-19 20:55] LABS: ALANINE AMINOTRANSFERASE 19 U/L (0-55); ALBUMIN 4.5 GM/DL (3.2-4.5); ALKALINE PHOSPHATASE 112 U/L (40-136); BILIRUBIN,TOTAL 0.5 MG/DL (0.1-1.0); BUN/CREATININE RATIO 21; CALCIUM 9.5 MG/DL (8.5-10.1); CARBON DIOXIDE 21 MMOL/L (21-32); CHLORIDE 106 MMOL/L (98-107); CREATININE SERUM 0.68 MG/DL (0.60-1.30); GFR ESTIMATED > 60; GLUCOSE 107 MG/DL (70-105); LIPASE 10 U/L (8-78); POTASSIUM 4.1 MMOL/L (3.6-5.0); SODIUM 140 MMOL/L (135-145); TOTAL PROTEIN 7.9 GM/DL (6.4-8.2)
[2017-10-19] MEDS ORDERED: NS 100 ML (IVPB) BAG IV ONE (21:00)
[2017-10-19] MEDS ORDERED: IOHEXOL 350 MG/ML 100 ML (OMNIPAQUE 350) VIAL IV ONE (21:00)
--- NOTE | 2017-10-19 22:03 | Diagnostic Imaging Report ---
PROCEDURE: CT abdomen and pelvis with contrast. TECHNIQUE: Multiple contiguous axial images were obtained through the abdomen and pelvis after administration of intravenous contrast. INDICATION: Nausea, vomiting and diarrhea. History of cholecystectomy, appendectomy and ovarian cyst. Comparison is made to the prior CT abdomen and pelvis from 09/11/2016. FINDINGS: Visualized lung bases appear clear. There is no pleural or pericardial effusion. There is a tiny cyst within the right hepatic lobe. This is unchanged. Liver otherwise unremarkable. The portal vein is patent. There has been previous cholecystectomy with no abnormal biliary dilatation. The pancreas is unremarkable. The spleen demonstrates no focal abnormality. There is no adrenal mass. The kidneys enhance normally and are nonobstructed. Small and large bowel normal in caliber without evidence of obstruction. There is, however, liquid stool demonstrated within the colon and there are a few fluid-filled loops of small bowel and there is a suggestion of some increased small bowel mucosal enhancement. Possibility of a gastroenteritis would be a primary consideration. There is no free air, free fluid or abscess. Urinary bladder unremarkable. Uterus unremarkable. There is an involuting right sided ovarian cyst. There is no adnexal mass. Aorta unremarkable. There is no acute osseous abnormality. IMPRESSION: 1. There is increased mucosal enhancement demonstrated throughout the small bowel. There is also liquid contents within the small bowel and colon which suggests liquid stool. Primary consideration would be that of a gastroenteritis. 2. Prior cholecystectomy without abnormal biliary dilatation 3. No free air, free fluid or abscess. Dictated by: Dictated on workstation # [id number]
[2017-10-19] MEDS ORDERED: PROMETHAZINE INJ 25 MG/ML (PHENERGAN) AMP ONE (22:31)
[2017-10-19] MEDS ORDERED: ONDA8TAB9 PO (22:50)
[2017-10-19] MEDS ORDERED: RX-ONDANSETRON 4 MG ODT (ZOFRAN) PPK #4 PO STA (22:50)
[2017-10-19] MEDS ORDERED: cefTRIAXone INJECTION 1,000 MG in NS (IVPB) 50 ML IV ONE (23:00)
[2017-10-19 23:17] VITALS: BP 105/70
== END 2017-10-19 23:14 | disposition other institution (70) ==
LOC: EDUNIT# 20:15 → ER 20:18
DX: K52.9 Noninfective gastroenteritis and colitis, unspecified (principal); N39.0 Urinary tract infection, site not specified; Z90.49 Acquired absence of other specified parts of digestive tract; Z87.59 Personal history of other complications of pregnancy, childbirth and the puerperium; Z90.89 Acquired absence of other organs
CPT/HCPCS: 36415; 74177; 80053; 81000; 83605; 83690; 84703; 85007; 85027; 86141; 87040; 87088

== ENCOUNTER → 2018-05-30 | Outpatient (CLI) | payer BC ==
[~2018-05-30] VITALS: Ht 157.5 cm; Wt 59.0 kg
[~2018-05-30] MED LIST changes: +CATHETER FLUSH 10 ML SYR IV PRN; +ONDA8TAB9 PO
[2018-05-30 08:09] VITALS: BP 110/73
[2018-05-30 08:15] VITALS: BP 122/71
[2018-05-30 08:21] VITALS: BP 133/71
[2018-05-30 08:26] VITALS: BP 108/71
--- NOTE | 2018-06-02 13:08 | STRESS TEST ---
DATE OF SERVICE: 05/30/2018 NUCLEAR MYOVIEW REPORT REFERRING PHYSICIAN: Dr. Yancey. In summary, the patient was injected with 10.62 mCi of technetium-99 Myoview and the resting images were obtained. Then, the patient received a stress dose of 31.4 mCi of technetium-99 Myoview and the stress images were acquired. The resting and stress images were reviewed and compared in the short axis, horizontal long axis, and vertical long axis views. Review of the images showed good radiotracer uptake with no significant ischemia or infarction. SSS is 0. TID value 0.93. On the gated images, the left ventricle appeared to be in normal size with normal contractility. Calculated ejection fraction is 66%. CONCLUSION: 1. No ischemia or infarction on SPECT images. 2. Normal left ventricular size with normal contractility. Calculated ejection fraction is 66%. Job ID: [id number] DocumentID: [id number] Dictated Date: 06/02/2018 11:27:40 Manager Gaming Date: 06/02/2018 13:08:04 Dictated By: ETHAN HODGES MD
== END ==
LOC: CARD 06:39
PROVIDERS: ATTEND Internal Medicine
DX: R00.2 Palpitations (principal)
CPT/HCPCS: 78452; 93017

== ENCOUNTER 2018-12-29 03:00 | Outpatient (CLI) | payer BC ==
[~2018-12-29] VITALS: Ht 160 cm; Wt 63.0 kg
--- NOTE | 2018-12-29 02:58 | NUR ---
RAIMUNDO GALICIA presented to unit via ambulatory from home, accompanied by , with c/o CONTRACTIONS. RAIMUNDO GALICIA weighed, gowned, voided, and to bed. EFHM and TOCO applied, VS taken. RAIMUNDO GALICIA oriented to bed controls, call light, TV, heat, and A/C controls.
[~2018-12-29 03:00] MED LIST changes: -CATHETER FLUSH 10 ML SYR IV PRN
[2018-12-29 03:10] VITALS: BP 110/58
--- NOTE | 2018-12-29 03:10 | NUR ---
Patient denies wanting flu shot this hospital visit
[2018-12-29 03:24] LABS: BILIRUBIN,URINE NEGATIVE (NEGATIVE); CLARITY,URINE CLEAR; COLOR,URINE YELLOW; GLUCOSE, URINE (UA) NEGATIVE (NEGATIVE); KETONES,URINE NEGATIVE (NEGATIVE); LEUKOCYTE ESTERASE ,URINE 1+ (NEGATIVE); NITRITE,URINE NEGATIVE (NEGATIVE); PH,URINE 7 (5-9); PROTEIN,URINE NEGATIVE (NEGATIVE); UROBILINOGEN,URINE NORMAL (NORMAL)
[2018-12-29 03:46] LABS: BACTERIA,URINE FEW /HPF; WBC,URINE 0-2 /HPF
--- NOTE | 2018-12-29 03:50 | NUR ---
This RN called Dr Hou to notify of patient arrival and complaints of possible contractions. Notified of contraction pattern with presence of uterine irritability, sve, vs, UA results, and discharge noted with sve. New orders for flagyl to be given one time as well as called in to pharmacy of patients choice and ok to discharge home.
--- NOTE | 2018-12-29 03:54 | NUR ---
FHR baseline of 145, accelerations present, no decelerations, moderate variability present, one contraction present lasting approx 50 with occasional uterine irritability noted to be lasting 20-30sec long. +FM per patient. SVE closed, thick and very posterior. Off white discharge noted to perineum and gloves with sve. Patient denies intercourse within last 48hrs. Abd nontender to palpation.
[2018-12-29] MEDS ORDERED: PREN-53 PO (03:59)
[2018-12-29] MEDS ORDERED: metroNIDAZOLE 500 MG (FLAGYL) TAB PO ONE (04:00)
[2018-12-29] MEDS ORDERED: metroNIDAZOLE 500 MG (FLAGYL) TAB ONE (04:01)
--- NOTE | 2018-12-29 04:10 | NUR ---
Discharge instructions and handouts provided and reviewed with patient at this time. Patient ambulating off of unit to private vehicle.
[2018-12-29] MEDS ORDERED: D5 LR IV SOLUTION 1,000 ML IV ONE (11:26)
== END 2018-12-29 04:10 | disposition home or self-care (01) ==
LOC: WSo 03:00 → LDRP 03:01 → WSo 04:10
PROVIDERS: ATTEND Obstetrics & Gynecology
DX: O47.03 False labor before 37 completed weeks of gestation, third trimester (principal); Z3A.28 28 weeks gestation of pregnancy
CPT/HCPCS: 81000; 99214

== ENCOUNTER 2019-02-13 11:52 | Inpatient (IN) | payer BC ==
[~2019-02-13] VITALS: Ht 157.5 cm; Wt 65.0 kg
[2019-02-13] VITALS (11 sets, daily range): BP systolic 94–114; BP diastolic 55–73
--- NOTE | 2019-02-13 11:45 | NUR ---
RAIMUNDO GALICIA presented to unit via AMBULATORY FROM OFFICE, FOR REPEAT C/SECTION DUE TO SROM. RAIMUNDO GALICIA weighed, gowned, voided, and to bed. EFHM and TOCO applied, VS taken. RAIMUNDO GALICIA oriented to bed controls, call light, TV, heat, and A/C controls.
[~2019-02-13 11:52] MED LIST changes: +PREN-53 PO
[2019-02-13] MEDS ORDERED: LACTATED RINGERS 1,000 ML IV PRN (12:03)
[2019-02-13] MEDS ORDERED: BETAMETHASONE ACE/NA PHOS 6 MG/ML (CELESTONE SOLUSPAN) ONE (12:06)
[2019-02-13] MEDS ORDERED: CITRIC ACID/SOB CIT (BICITRA) 30 ML UDC PO ONE (12:15)
[2019-02-13] MEDS ORDERED: FAMOTIDINE 20MG/2ML IV (PEPCID) IV ONE (12:15)
[2019-02-13] MEDS ORDERED: METOCLOPRAMIDE INJ 10 MG/2 ML (REGLAN) IV ONE (12:15)
[2019-02-13] MEDS ORDERED: CATHETER FLUSH 10 ML SYR IV PRN (12:15)
[2019-02-13] MEDS ORDERED: BETAMETHASONE ACE/NA PHOS 6 MG/ML (CELESTONE SOLUSPAN) IM SCH (12:15)
[2019-02-13 12:42] LABS: BASOPHILS % (AUTO) 0 % (0-10); EOSINOPHILS % (AUTO) 0 % (0-10); HEMATOCRIT 31 % (35-52); HEMOGLOBIN 9.9 G/DL (11.5-16.0); LYMPHOCYTES # (AUTO) 1.4 X 10^3 (1.0-4.0); LYMPHOCYTES % (AUTO) 20 % (12-44); MEAN CORPUSCULAR HEMOGLOBIN 28 PG (25-34); MEAN CORPUSCULAR HGB CONC 32 G/DL (32-36); MEAN CORPUSCULAR VOLUME 86 FL (80-99); MEAN PLATELET VOLUME 10.4 FL (7.4-10.4); MONOCYTES # (AUTO) 0.5 X 10^3 (0.0-1.0); MONOCYTES % (AUTO) 8 % (0-12); NEUTROPHILS # (AUTO) 4.8 X 10^3 (1.8-7.8); NEUTROPHILS % (AUTO) 71 % (42-75); PLATELET COUNT 218 10^3/uL (130-400); RED CELL DISTRIBUTION WIDTH 13.1 % (10.0-14.5); WHITE BLOOD COUNT 6.8 10^3/uL (4.3-11.0)
--- NOTE | 2019-02-13 13:00 | NUR ---
REPORT GIVEN TO YESSI LAURENT AT THIS TIME.
--- NOTE | 2019-02-13 13:15 | NUR ---
ANESTHESIA AT BEDSIDE
--- NOTE | 2019-02-13 13:28 | NUR ---
DR OWENS AT BEDSIDE.
[2019-02-13] MEDS ORDERED: OXYTOCIN/NORMAL SALINE 1,000 ML IV ONE (13:29)
[2019-02-13] MEDS ORDERED: fentaNYL INJECTION 100 MCG/2 ML AMP ONE (13:29)
--- NOTE | 2019-02-13 13:41 | History & Physical ---
History and Physical Date Seen by Provider: February 13, 2019 Time Seen by Provider: 13:37 This patient is a 22-year-old 1 white female currently at 34-6/ 7 weeks' gestation. She was seen in my clinic on this date with complaint of rupture membranes. She expresses a large gush of fluid about 9 a.m. She denied rupture membranes or bleeding. She is indicating that she started feeling contractions shortly after the gush of fluid. Evaluation in my clinic was nitrazine positive pooling positive fern positive consistent with P PROM. This patient had a previous and plan for repeat . Her history is significant for having GBS positive urine culture on during this . Decision made to proceed with delivery secondary to 50 PROM and the presence of group B strep. In addition this patient's is complicated by cholestasis and PUPPP Allergies are none Medications are vitamins and ursodiol 300 mg 2 or 3 times a day Medical social and surgical histories are per the antepartum record HEENT exam is normal Neck is supple no lymphadenopathy no thyromegaly Abdomen is gravid soft nontender nondistended Extremities show no clubbing or cyanosis. There is no Homans sign. Pelvic exam in my clinic with a sterile speculum exam showed a cervix that was closed with pooling in the posterior vaginal vault nitrazine was positive as was fern test. Ultrasound on 1 day prior showed a vertex presentation with an ZULEYKA of only 66 and a fetus that was AGA Laboratory Tests 02/13/19 12:30 Assessment and plan 34-6/7 weeks' gestation with P PROM and previous C- section and a complicated by an cholestasis of as well as GBS positive urine squamous to proceed with delivery now. Patient has been a dose of betamethasone approximately 2 hours prior to initiating the P PROM at 34-5/7 weeks' gestation Allergies and Home Medications Allergies Coded Allergies: No Known Drug Allergies (Unverified , 03/15/17) Home Medications [id number]/Iron Fumarate/FA/Dss 1 Each Tablet, 1 EACH PO DAILY, (Reported) Patient Home Medication List Home Medication List Reviewed: Yes ALICIA OWENS MD February 13, 2019 13:41
[2019-02-13] MEDS ORDERED: ONDANSETRON 4 MG/2 ML (SDV) Z0FRAN ONE (13:43)
[2019-02-13] MEDS ORDERED: DEXAMETHASONE 10 MG/ML (DECADRON) 1 ML VIAL ONE (13:43)
[2019-02-13] MEDS ORDERED: ceFAZolin INJECTION 2,000 MG in WATER (STERILE) FOR INJECTION 10 ML IV ONE (13:45)
[2019-02-13] MEDS ORDERED: metroNIDAZOLE 500MG/100ML IVPB 100 ML IV NR (13:45)
[2019-02-13] MEDS ORDERED: ceFAZolin 2 GM/50 ML PRE-MIX IVPB IV NR (13:45)
[2019-02-13] MEDS ORDERED: ROPIVACAINE 5MG/ML 30ML VIAL ONE (14:26)
[2019-02-13] MEDS ORDERED: ONDANSETRON 4 MG/2 ML (SDV) Z0FRAN IVP PRN ×2 (15:00→16:00)
[2019-02-13] MEDS ORDERED: HYDROmorphone 2 MG/ML VIAL (DILAUDID) IV ONE (15:00)
--- NOTE | 2019-02-13 15:40 | NUR ---
Report received from Melanie Gregory RN from recovery. Addendum: 02/13/19 at 7 by MATHEUS COPE RN Jake Gregory Rn stated that taylor was removed in OR.
[2019-02-13] MEDS ORDERED: D5 LR IV SOLUTION 1,000 ML IV SCH (15:48)
[2019-02-13] MEDS ORDERED: OXYTOCIN/NORMAL SALINE 500 ML IV SCH (15:48)
[2019-02-13] MEDS ORDERED: TETANUS,DIPTH,PERTUSS P/F (BOOSTRIX) 0.5 ML VIAL IM ONE (16:00)
[2019-02-13] MEDS: KETOROLAC 30 MG/ML VIAL IVP PRN ×2 (16:15→22:14)
--- NOTE | 2019-02-13 17:15 | NUR ---
Pt desires to go to nursery to see . Up to BR and ambulated well. Voided 400ml. Blossom care and gown change done. Flow rubra moderate amt. 1730 To nursery per wheelchair. 1850 Returned to room. Complains of pain - Pain medication given.
[2019-02-13] MEDS: D5 LR IV SOLUTION 1,000 ML IV SCH ×2 (18:00→21:00)
[2019-02-13] MEDS: oxyCODONE/APAP 10/325MG (PERCOCET 10) TABLET PO PRN ×2 (19:05→20:43)
[2019-02-13] MEDS: DOCUSATE SODIUM 100 MG (COLACE) CAP PO SCH (22:13)
[2019-02-14 01:02] VITALS: BP 92/50
--- NOTE | 2019-02-14 02:13 | OPERATIVE REPORT ---
DATE OF SERVICE: 02/13/2019 PREOPERATIVE DIAGNOSES: A 34.6/7 weeks' gestation with premature rupture of membranes previous cholestasis of and pruritic urticarial papules and plaques of . POSTOPERATIVE DIAGNOSES: SAME OPERATIVE PROCEDURE: Repeat low transverse delivery of a viable male with Apgars of 8 and 8 at 1 and 5 minutes respectively, weight of 5 pounds 13 ounces. Cord blood gas of 7.32 and a time of 14:16. FORESTRY AIDE FOR DELIVERY: Dr. Stewart. OPERATIVE DESCRIPTION: With the patient in the supine position under satisfactory spinal analgesia, she was prepped and draped in the usual fashion for abdominal surgery. [place] catheter was placed in the urinary bladder. A repeat Pfannenstiel incision was made through the skin with a scalpel by removing the patient's previous Pfannenstiel incisional scar. The abdomen was entered in the usual manner. Bladder retractor placed in position. A clean scalpel used to make a 4 cm hysterotomy incision transversely across the lower uterine segment that lower uterine segment was paper thin with a large uterine window comprised of membranes and peritoneum spanning the entire transverse portion of the lower uterine segment and extending vertically approximately 5 cm. A small amount of clear fluid was released on hysterotomy. That incision was extended bluntly and then a vigorous viable male was delivered via the uterine incision with the use of Dickerson forceps to facilitate the delivery and minimize the pressure on the abdominal wall. The infant was bulb suctioned on delivery of the head and again on completion of delivery the umbilical cord was allowed to begin to become pulseless before it was clamped and then the cord was doubly clamped and cut and the infant passed to Dr. Stewart, the modeling instructor in attendance for delivery. Cord bloods were obtained. The placenta delivered spontaneously Hernandez. It was normal with a 3-vessel cord. The uterus was exteriorized and interior wiped clean with a wet laparotomy sponge. Uterine incision was then closed with a running locked suture of 2-0 Vicryl. Hemostasis was complete. The uterus was returned to the abdominal cavity. All blood clot and debris was removed from the abdominal cavity. With sponge, needle counts correct, hemostasis assured. The anterior parietal peritoneum was closed with running suture of 2-0 Vicryl. Rectus muscles were closed with that suture as well. The rectus fascia was closed with 2-0 Vicryl, subcutaneous tissue with 2-0 Vicryl and the skin was stapled. Sponge and needle counts were correct on completion of the procedure. Estimated blood loss was around 600 mL. The patient tolerated the procedure well and was transferred to the recovery room in stable condition. The had been taken stable to the full term nursery under the care of Dr. Stewart. Job ID: [id number] DocumentID: [id number] Dictated Date: 02/13/2019 14:47:49 Senior Controls Technician Date: 02/14/2019 02:12:45 Dictated By: ALICIA OWENS MD MTDD
[2019-02-14] MEDS: KETOROLAC 30 MG/ML VIAL IVP PRN (05:11)
[2019-02-14] MEDS: oxyCODONE/APAP 10/325MG (PERCOCET 10) TABLET PO PRN ×4 (05:11→23:50)
[2019-02-14 05:12] VITALS: BP 99/66
[2019-02-14 08:00] VITALS: BP 96/60
--- NOTE | 2019-02-14 08:00 | NUR ---
A.M. ASSESSMENT COMPLETED. VSS. PREPARING TO GO INTO THE NURSERY TO SEE INFANT.
[2019-02-14] MEDS: DOCUSATE SODIUM 100 MG (COLACE) CAP PO SCH ×2 (08:12→20:31)
[2019-02-14] MEDS ORDERED: TETANUS,DIPTH,PERTUSS P/F (BOOSTRIX) 0.5 ML VIAL IM ONE (08:16)
--- NOTE | 2019-02-14 08:30 | NUR ---
DR. OWENS IN TO SEE PT.
--- NOTE | 2019-02-14 08:35 | Progress Note-Standard ---
Standard Progress Note Progress Notes/Assess & Plan Date Seen by a Provider: February 14, 2019 Time Seen by a Provider: 08:34 Progress/Assessment & Plan This patient is without complaint. She is ambulating, voiding, tolerating oral intake well has good pain control. Patient denies chest pain, denies shortness of breath, denies nausea vomiting, and denies headache. Vital signs are stable. Patient is afebrile. Vital Signs 02/14/19 05:12 Temp 98.3 Pulse 74 Resp 16 B/P (MAP) 99/66 (77) Pulse Ox 98 O2 Delivery Room Air The fundus is firm nontender and below the umbilicus. The surgical incision is clean dry and intact. Extremities show no clubbing or cyanosis. There is no Homans sign. Assessment and plan postoperative day number 1 status post repeat delivery doing well. Plan is for routine convalescence care ALICIA OWENS MD February 14, 2019 08:35
--- NOTE | 2019-02-14 08:39 | Anesthesia-Regional Post-Op ---
Regional Patient Condition Mental Status: Alert, Oriented x3 Circulation: Same as Pre-Op Headache: Absent Sensation: Full Recovery Motor Block: Absent Post Op Complications Complications None Follow Up Care/Instructions Patient Instructions None needed. Anesthesia/Patient Condition Patient is doing well, no complaints, stable vital signs, no apparent adverse anesthesia problems. No complications reported per nursing. LUZ GREEN CRNA February 14, 2019 08:39
--- NOTE | 2019-02-14 10:30 | NUR ---
VISITORS IN ROOM.
[2019-02-14] MEDS: HYDROCORTISONE 2.5% CREAM (ANUSOL-HC) 30 GM TOP SCH ×2 (11:29→20:32)
--- NOTE | 2019-02-14 11:44 | NUR ---
PERCOCET GIVEN. EATING LUNCH. DOING WELL.
[2019-02-14] MEDS: IBUPROFEN 800 MG (MOTRIN) TAB PO SCH ×3 (11:45→23:51)
[2019-02-14 11:46] VITALS: BP 102/58
--- NOTE | 2019-02-14 14:00 | NUR ---
PT HAS AMBULATED SEVERAL TIMES IN THE CANO AND TO THE NURSERY. MOVES WELL.
[2019-02-14] MEDS ORDERED: OXYC1TAB12 PO (16:20)
[2019-02-14] MEDS ORDERED: IBUP-1780 PO (16:20)
[2019-02-14] MEDS ORDERED: DOCU100C37 PO (16:20)
--- NOTE | 2019-02-14 16:21 | Discharge Instructions ---
Discharge Instructions Discharge Medications New, Converted or Re-Newed RX: RX on Chart Patient Instructions Patient Instructions: As directed Return to The Hospital For: As directed Activity & Diet Discharge Diet: No Restrictions Activity as Tolerated: No Orders-Post D/C & Referrals Follow Up Appt: RTC 1 week for incision check. Call to make follow up appt. for patient in 4 weeks. Wound Care: Remove rupa, apply benzoin and steri strips. Activity Per routine post instructions. Please call in RX to patient pharmacy. Diet as tolerated Patient may shower or tub bathe as desired. Continue home meds ALICIA OWENS MD February 14, 2019 16:21
--- NOTE | 2019-02-14 18:00 | NUR ---
RESTING ON SIDE. PLEASANT AFFECT.
--- NOTE | 2019-02-14 18:03 | NUR ---
PERCOCET 10/325 P.O. FOR C/O ABD PAIN. FAMILY AT BEDSIDE.
[2019-02-14 18:15] VITALS: BP 110/57
--- NOTE | 2019-02-14 22:00 | NUR ---
Pt up to ambulate in mora and visit infant in nursery. Pt ambulating well.
[2019-02-14 23:52] VITALS: BP 102/67
[2019-02-15 06:00] VITALS: BP 100/57
[2019-02-15] MEDS: IBUPROFEN 800 MG (MOTRIN) TAB PO SCH ×3 (06:10→18:12)
[2019-02-15] MEDS: oxyCODONE/APAP 10/325MG (PERCOCET 10) TABLET PO PRN ×2 (06:10→13:52)
--- NOTE | 2019-02-15 08:00 | NUR ---
A.M. ASSESSMENT COMPLETED. VSS. CONTINUES TO GO TO THE NURSERY AT INTERVALS.
[2019-02-15] MEDS: DOCUSATE SODIUM 100 MG (COLACE) CAP PO SCH (09:24)
[2019-02-15] MEDS: HYDROCORTISONE 2.5% CREAM (ANUSOL-HC) 30 GM TOP SCH (09:24)
--- NOTE | 2019-02-15 11:15 | NUR ---
DR. OWENS HERE TO SEE PT.
--- NOTE | 2019-02-15 11:28 | Progress Note-Standard ---
Standard Progress Note Progress Notes/Assess & Plan Date Seen by a Provider: February 15, 2019 Time Seen by a Provider: 11:27 Progress/Assessment & Plan This patient is without complaint. She is ambulating, voiding, tolerating oral intake well has good pain control. Patient denies chest pain, denies shortness of breath, denies nausea vomiting, and denies headache. Vital signs are stable. Patient is afebrile. Vital Signs 02/14/19 05:12 Temp 98.3 Pulse 74 Resp 16 B/P (MAP) 99/66 (77) Pulse Ox 98 O2 Delivery Room Air The fundus is firm nontender and below the umbilicus. The surgical incision is clean dry and intact. Extremities show no clubbing or cyanosis. There is no Homans sign. Assessment and plan postoperative day number 1 status post repeat delivery doing well. Plan is for routine convalescence care 2018 Patient is without complaint. She is ablating, voiding, tolerating oral intake well has good pain control. Patient denies chest pain, denies shortness breath , denies nausea vomiting, denies headache. Vital Signs 02/15/19 06:00 Temp 97.9 Pulse 91 Resp 18 B/P (MAP) 100/57 (71) Pulse Ox 98 O2 Delivery Room Air Vital signs are stable. Patient is afebrile. The abdomen is benign. Extremities show no clubbing cyanosis. There is no Homans sign. Assessment and plan postoperative day number 2 status post repeat doing well. Baby is not ready for discharge home. Patient can be discharged home to room in 4 she can be discharged if she prefers. Final Diagnosis 35 weeks repeat delivery ALICIA OWENS MD February 15, 2019 11:28
[2019-02-15 12:00] VITALS: BP 117/56
--- NOTE | 2019-02-15 15:00 | NUR ---
NAPPING WITH OLDER CHILD.
--- NOTE | 2019-02-15 16:00 | NUR ---
REPORT RECEIVED FROM DILEEP CHAU RN. Addendum: 02/15/19 at 1712 by GEORGE MORALES RN WRONG PATIENT
--- NOTE | 2019-02-15 16:45 | NUR ---
HUNG D/C'ED AND STERI STRIPS APPLIED. EDGES WELL-APPROXIMATED. NO DRAINAGE OR BLEEDING. TOLERATED WELL.
--- NOTE | 2019-02-15 17:00 | NUR ---
RESTING IN BED. FAMILY AT BEDSIDE. DENIES ANY WANTS OR NEEDS. Addendum: 02/15/19 at 1712 by GEORGE MORALES RN WRONG PATIENT
[2019-02-15 18:00] VITALS: BP 119/75
--- NOTE | 2019-02-15 18:05 | NUR ---
DISCHARGE INSTRUCTIONS REVIEWED WITH COPY TO PT. STATES UNDERSTANDING OF ALL INSTRUCTIONS AND NEED TO F/U INSTRUCTED AND NEEDED.
--- NOTE | 2019-02-15 18:30 | NUR ---
ORDERED STORK MEAL.
[2019-02-15 18:45] VITALS: BP 119/75
--- NOTE | 2019-02-15 18:45 | NUR ---
PT DISMISSED FROM WS IN STABLE CONDITION TO ROOMING-IN PARENT R/T INFANT HAVING TO REMAIN A PATIENT.
== END 2019-02-15 18:45 | disposition home or self-care (01) | DRG 787 ==
LOC: LDRP 11:52
PROVIDERS: ADMIT Obstetrics & Gynecology; ATTEND Obstetrics & Gynecology
PROC: 10D00Z1 Extraction of Products of Conception, Low, Open Approach (ICD-10-PCS; principal; 2019-02-13 13:53)
DX: O42.013 Preterm premature rupture of membranes, onset of labor within 24 hours of rupture, third trimester (principal); O34.211 Maternal care for low transverse scar from previous cesarean delivery; O99.824 Streptococcus B carrier state complicating childbirth; O26.62 Liver and biliary tract disorders in childbirth; O26.86 Pruritic urticarial papules and plaques of pregnancy (PUPPP); Z37.0 Single live birth; Z3A.34 34 weeks gestation of pregnancy; Z23 Encounter for immunization
CPT/HCPCS: 36415; 85025; 86850; 86900; 86901; 88307; 90715; 94664

== ENCOUNTER → 2020-04-12 | Outpatient (CLI) | payer BC ==
[~2020-04-12] MED LIST changes: +OXYC1TAB12 PO
--- NOTE | 2020-04-12 14:08 | Diagnostic Imaging Report ---
PROCEDURE: US Venous Lower Ext Misael. TECHNIQUE: Multiple Real-time grayscale images were obtained over the lower extremities in various projections, bilaterally. Additional duplex Doppler and color Doppler images were also obtained. INDICATION: Bilateral leg swelling and pain. FINDINGS: There is no evidence of right or left lower extremity DVT. Both lower extremity deep venous systems demonstrate normal compressibility with normal response to augmentation and Valsalva. No fluid collection or mass is detected. IMPRESSION: No evidence of right or left lower extremity DVT. Dictated by: Dictated on workstation # [id number]
== END ==
LOC: RAD 12:40
PROVIDERS: ATTEND Obstetrics & Gynecology
DX: M79.661 Pain in right lower leg (principal); M79.662 Pain in left lower leg; M79.89 Other specified soft tissue disorders
CPT/HCPCS: 93970

== ENCOUNTER 2020-07-07 10:06 | Outpatient (CLI) | payer BC ==
[~2020-07-07] VITALS: Ht 157.5 cm; Wt 70.5 kg
[~2020-07-07 10:06] MED LIST changes: -OXYC-465 PO; +OXYC-556 PO
--- NOTE | 2020-07-07 10:12 | NUR ---
RAIMUNDO GALICIA presented to unit via amulatory from ED, with c/o leaking fluid. RAIMUNDO GALICIA weighed, gowned, voided, and to bed. EFHM and TOCO applied, VS taken. RAIMUNDO GALICIA oriented to bed controls, call light, TV, heat, and A/C controls.
[2020-07-07 10:25] VITALS: BP 98/51
--- NOTE | 2020-07-07 10:26 | NUR ---
TOCO APPLIED. FHR OBTAINED AT 145/DOPPLER. ABDOMEN SOFT. VSS.
--- NOTE | 2020-07-07 10:32 | NUR ---
U/S TRANSDUCER APPLIED. FHR 150 WITH AUDIBLE FM. VERY ACTIVE FETUS.
--- NOTE | 2020-07-07 10:42 | NUR ---
AMNIO SWAB PERFORMED WITH NEGATIVE RESULTS. FERN TEST PERFORMED AND SENT TO LAB.
--- NOTE | 2020-07-07 10:43 | NUR ---
HAD PT COUGH DURING AMNIO SWAB TEST. NO FLUID NOTED.
[2020-07-07] MEDS ORDERED: PEDI100T4 PO (11:00)
--- NOTE | 2020-07-07 11:00 | NUR ---
FHR 150. APPROPRIATE FHR TRACING FOR GESTATIONAL AGE. AUDIBLE FM. OCC MILD VARIABLE. POSSIBLE CTX NOTED X2. PT STATES SHE HAS FELT A LITTLE CRAMPING SINCE ARRIVAL.
--- NOTE | 2020-07-07 11:05 | NUR ---
FERN NEGATIVE PER LAB.
--- NOTE | 2020-07-07 11:08 | NUR ---
DR. OWENS ON UNIT. REVIEWED STRIP. HX RELAYED OF 21 1/7 WEEKS GESTATION WITH C/O POSSIBLE LEAKING AND CRAMPING, NEGATIVE FERN AND AMNIO SWAB. ORDERS TO DISMISS. EFM OFF. UP TO GET DRESSED.
[2020-07-07 11:17] VITALS: BP 98/51
[2020-07-07] MEDS ORDERED: URSO300C3 PO (11:17)
[2020-07-07 11:19] VITALS: BP 98/51
--- NOTE | 2020-07-07 11:30 | NUR ---
DISCHARGE INSTRUCTIONS REVIEWED WITH COPY TO PT. STATES UNDERSTANDING OF ALL INSTRUCTIONS AND NEED TO F/U SCHEDULED AND NEEDED.
[2020-07-07 11:35] VITALS: BP 98/51
--- NOTE | 2020-07-07 11:35 | NUR ---
DISMISSED AMB FROM WS IN STABLE CONDITION.
--- NOTE | 2020-07-08 08:42 | Physician Query-Final Dx ---
KAYLIN WOMACK 07/08/20 0842: Clinic Account Progress/Dx Physician Query: Please give diagnosis Please include # weeks gestation Date of Service Jul 07, 2020 at 10:06 ALICIA OWENS MD 07/11/20 0518: Clinic Account Progress/Dx DIAGNOSIS: Diagnosis 21 weeks gestation/ vaginal discharge/false labor KAYLIN WOMACK Jul 08, 2020 08:42 ALICIA OWENS MD Jul 11, 2020 05:18
== END 2020-07-07 11:35 | disposition home or self-care (01) ==
LOC: WSo 10:06 → LDRP 10:10 → WSo 11:35
PROVIDERS: ATTEND Obstetrics & Gynecology
DX: O88.112 Amniotic fluid embolism in pregnancy, second trimester (principal); Z3A.21 21 weeks gestation of pregnancy
CPT/HCPCS: G0463; Q0114; 36415; 89060; 99214

== ENCOUNTER 2020-09-17 22:51 | Outpatient (CLI) | payer BC ==
[~2020-09-17] VITALS: Ht 157.5 cm; Wt 74.1 kg
[~2020-09-17 22:51] MED LIST changes: +PEDI100T4 PO; +URSO300C3 PO
--- NOTE | 2020-09-17 22:55 | NUR ---
RAIMUNDO GALICIA presented to unit via AMBULATION from ED, accompanied by , with c/o POSSIBLE WATER BREAK. RAIMUNDO GALICIA weighed, gowned, voided, and to bed. EFHM and TOCO applied, VS taken. RAIMUNDO GALICIA oriented to bed controls, call light, TV, heat, and A/C controls.
[2020-09-17 23:15] VITALS: BP 122/78
[2020-09-17] MEDS ORDERED: NITR100C10 PO (23:32)
--- NOTE | 2020-09-17 23:35 | NUR ---
D/C instructions given & explained per Meena Almanza RN, pt. verbalized understanding & signed, copy of D/C instructions to pt. Pt. left [facility] ambulatory escorted by SO, to home via private vehicle.
--- NOTE | 2020-09-19 09:33 | Physician Query-Final Dx ---
KAYLIN WOMACK 09/19/20 0933: Clinic Account Progress/Dx Physician Query: Please give diagnosis Please include # weeks gestation Date of Service Sep 17, 2020 at 22:51 ALICIA OWENS MD 09/20/20 1739: Clinic Account Progress/Dx DIAGNOSIS: Diagnosis False labor at 31 weeks gestation KAYLIN WOMACK Sep 19, 2020 09:33 ALICIA OWENS MD Sep 20, 2020 17:39
== END 2020-09-17 23:35 | disposition home or self-care (01) ==
LOC: WSo 22:51 → LDRP 22:52 → WSo 23:35
PROVIDERS: ATTEND Obstetrics & Gynecology
DX: O47.03 False labor before 37 completed weeks of gestation, third trimester (principal); Z3A.31 31 weeks gestation of pregnancy
CPT/HCPCS: 99213

== ENCOUNTER 2020-10-21 21:07 | Outpatient (CLI) | payer BC, MEDICAID ==
[~2020-10-21] VITALS: Ht 160 cm; Wt 99.9 kg
[~2020-10-21 21:07] MED LIST changes: +NITR100C10 PO
[2020-10-21 22:00] VITALS: BP 131/84
[2020-10-21 22:17] VITALS: BP 131/84
[2020-10-21] MEDS ORDERED: D5 LR IV SOLUTION 1,000 ML IV ONE ×2 (22:29→23:42)
[2020-10-22] MEDS ORDERED: D5 LR IV SOLUTION 1,000 ML IV ONE (02:15)
[2020-10-22 02:16] VITALS: BP 131/84
[2020-10-22] MEDS ORDERED: D5 LR IV SOLUTION 1,000 ML IV SCH (06:15)
[2020-10-22 08:40] VITALS: BP 111/72
--- NOTE | 2020-10-22 08:45 | NUR ---
Dr donahue notified of no contractions noted, pt denies feeling contractions, fhr reactive, recent sve with small amt of dk red blood noted on glove after exam. Order for pt to stay until Dr here to evaluate. plan of care reviewed with pt and s.o. warm blanket to pt for comfort.
--- NOTE | 2020-10-22 09:32 | Discharge Inst-Surgical ---
Discharge Inst-Surgical Depart Medication/Instructions New, Converted or Re-Newed RX: Other Consults/Follow Up Patient Instructions: DIRECTED Orders & Referrals RTC SCHEDULED RTC FOR ANY SIGNS OR SYMPTOMS OF LABOR Activity Activity as Tolerated: Yes Diet Discharge Diet: No Restrictions ALICIA OWENS MD Oct 22, 2020 09:32
--- NOTE | 2020-10-22 09:36 | History & Physical ---
History and Physical Date Seen by Provider: Oct 22, 2020 Time Seen by Provider: 09:32 This patient is a 24-year-old 3 para 2 2 white female who presented last evening with complaint of contractions and bleeding. Her history is significant for prior delivery at 34+ weeks gestation and with both of her deliveries coming back . On admission she was found to be josue every 5 to 6 minutes and there was some blood in the vagina. Patient was started on IV fluids and observed through the night. This morning patient now reports that her contractions have almost resolved. Her admission pain has resolved. She is having no more vaginal bleeding. She does feel baby move Allergies are none Medications are vitamins Medical social and surgical history is all per the antepartum record HEENT exam is normal Neck is supple no lymphadenopathy no thyromegaly Abdomen is gravid soft nontender nondistended Extremities show no clubbing or cyanosis. There is no Homans' sign. Pelvic exam per the nurse notes cervix is less than 1 cm dilated and thick and there is currently no vaginal bleeding monitor shows an occasional contractions now with a normal heart rate pattern with a category 1 tracing Vital Signs Date Time Temp Pulse Resp B/P (MAP) Pulse Ox O2 Delivery O2 Flow Rate FiO2 10/22/20 02:16 36.8 81 18 98 Room Air 10/21/20 22:17 36.8 81 18 98 Room Air 10/21/20 22:00 36.8 81 18 131/84 (100) Room Air Assessment and plan 36-week with 2 previous C-sections and one delivery observed overnight now for labor that has resolved with hydration. We will outpatient discharge home with follow-up in clinic and stri ct return to clinic precautions 36 weeks with labor and 2 previous C-sections Allergies and Home Medications Allergies Coded Allergies: No Known Drug Allergies (Unverified , 03/15/17) Home Medications Nitrofurantoin Monohyd/M-Cryst 100 Mg Capsule, 100 MG PO DAILY, (Reported) Pedi Multivit No.7/Folic Acid 100 Mcg Tab.chew, 100 MCG PO DAILY, (Reported) Ursodiol 300 Mg Capsule, 300 MG PO BID, (Reported) Patient Home Medication List Home Medication List Reviewed: Yes ALICIA OWENS MD Oct 22, 2020 09:36
[2020-10-22 09:58] VITALS: BP 111/72
--- NOTE | 2020-10-22 09:58 | NUR ---
Discharge instructions explained, signed and copy to patient. pt verbalized understanding of instructions and denied questions.
--- NOTE | 2020-10-22 10:00 | NUR ---
Discharged to home. Ambulates self downstairs to private vehicle with belongings in hand. Accompanied by s.o.
== END 2020-10-22 10:00 | disposition home or self-care (01) ==
LOC: WSo 21:07 → LDRP 21:07 → WSo 10-22 10:00
PROVIDERS: ATTEND Obstetrics & Gynecology
DX: O62.4 Hypertonic, incoordinate, and prolonged uterine contractions (principal); Z3A.00 Weeks of gestation of pregnancy not specified
CPT/HCPCS: 96360; 96361; G0463; 99214

== ENCOUNTER 2020-10-25 05:31 | Outpatient (RCR) | payer BC ==
[~2020-10-25] VITALS: Ht 157.5 cm; Wt 75.5 kg
--- NOTE | 2020-10-25 08:39 | History & Physical ---
History and Physical Date Seen by Provider: Oct 27, 2020 Time Seen by Provider: 13:05 This patient is a 24-year-old 3 para 2 2 white female currently at 36 6/7 weeks gestation with a history of cholestasis of . She has been taking ursodiol for control of the pruritus. She has history of previous delivery and is admitted now for repeat . Her GBS culture after 35 weeks gestation was positive. She denies rupture membranes or bleeding. Allergies are none Medications are vitamins and ursodiol 300 mg twice a day Medical social and surgical histories are per the antepartum record HEENT exam is normal Supple no lymphadenopathy no thyromegaly Abdomen is gravid soft nontender and distended Extremities show no clubbing or cyanosis. There is no Homans sign. Pelvic exam is deferred Assessment and plan 36 + weeks gestation patient with 2 previous C-sections and history of cholestasis of . She is admitted now for repeat delivery 37 weeks gestation with cholestasis of and previous Allergies and Home Medications Allergies Coded Allergies: No Known Drug Allergies (Unverified , 03/15/17) Home Medications Nitrofurantoin Monohyd/M-Cryst 100 Mg Capsule, 100 MG PO DAILY, (Reported) Pedi Multivit No.7/Folic Acid 100 Mcg Tab.chew, 100 MCG PO DAILY, (Reported) Ursodiol 300 Mg Capsule, 300 MG PO BID, (Reported) Patient Home Medication List Home Medication List Reviewed: Yes ALICIA OWENS MD Oct 25, 2020 08:39
[2020-10-26] MEDS ORDERED: DCS100C PO (15:33)
[2020-10-26] MEDS ORDERED: IBUP-1780 PO (15:33)
[2020-10-26] MEDS ORDERED: OXYC1TAB12 PO (15:33)
== END 2020-10-25 09:43 | disposition home or self-care (01) ==
LOC: PREOP 05:31
PROVIDERS: ATTEND Obstetrics & Gynecology
DX: Z01.812 Encounter for preprocedural laboratory examination (principal); O99.019 Anemia complicating pregnancy, unspecified trimester; O99.619 Diseases of the digestive system complicating pregnancy, unspecified trimester; K80.20 Calculus of gallbladder without cholecystitis without obstruction; Z20.822 Contact with and (suspected) exposure to COVID-19
CPT/HCPCS: 87635

== ENCOUNTER 2020-10-26 10:55 | Inpatient (IN) | payer BC, MEDICAID ==
[~2020-10-26] VITALS: Ht 157.5 cm; Wt 77.2 kg
[2020-10-26] VITALS (7 sets, daily range): BP systolic 103–118; BP diastolic 56–71
[2020-10-26] MEDS ORDERED: D5 LR IV SOLUTION 1,000 ML IV SCH ×2 (11:15→15:30)
[2020-10-26] MEDS ORDERED: CATHETER FLUSH 10 ML SYR IV PRN (11:15)
[2020-10-26] MEDS ORDERED: CITRIC ACID/SOB CIT (BICITRA) 30 ML UDC PO ONE (11:15)
[2020-10-26] MEDS ORDERED: metroNIDAZOLE 500MG/100ML IVPB 100 ML IV ONE (11:15)
[2020-10-26] MEDS ORDERED: ceFAZolin INJECTION 2,000 MG in WATER (STERILE) FOR INJECTION 10 ML IV ONE (11:15)
[2020-10-26] MEDS ORDERED: LACTATED RINGERS 1,000 ML IV PRN ×2 (11:15)
[2020-10-26] MEDS ORDERED: METOCLOPRAMIDE INJ 10 MG/2 ML (REGLAN) IV ONE (11:15)
[2020-10-26] MEDS ORDERED: FAMOTIDINE 20MG/2ML IV (PEPCID) IV ONE (11:15)
[2020-10-26] MEDS ORDERED: WATER (STERILE) FOR INJECTION 10 ML ONE (11:36)
[2020-10-26 11:40] LABS: BASOPHILS % (AUTO) 0 % (0-10); EOSINOPHILS % (AUTO) 1 % (0-10); HEMATOCRIT 28 % (35-52); HEMOGLOBIN 8.7 g/dL (11.5-16.0); LYMPHOCYTES # (AUTO) 1.1 10^3/uL (1.0-4.0); LYMPHOCYTES % (AUTO) 18 % (12-44); MEAN CORPUSCULAR HEMOGLOBIN 26 pg (25-34); MEAN CORPUSCULAR HGB CONC 32 g/dL (32-36); MEAN CORPUSCULAR VOLUME 83 fL (80-99); MEAN PLATELET VOLUME 11.9 fL (9.0-12.2); MONOCYTES # (AUTO) 0.4 10^3/uL (0.0-1.0); MONOCYTES % (AUTO) 7 % (0-12); NEUTROPHILS # (AUTO) 4.4 10^3/uL (1.8-7.8); NEUTROPHILS % (AUTO) 74 % (42-75); PLATELET COUNT 200 10^3/uL (130-400); WHITE BLOOD COUNT 5.9 10^3/uL (4.3-11.0)
[2020-10-26] MEDS ORDERED: OXYTOCIN PRE-MIX DRIP 1,000 ML IV ONE (12:01)
[2020-10-26] MEDS ORDERED: fentaNYL INJECTION 100 MCG/2 ML AMP ONE (12:01)
--- NOTE | 2020-10-26 13:17 | History & Physical ---
History and Physical Date Seen by Provider: Oct 26, 2020 Time Seen by Provider: 13:13 This patient is a 24-year-old 3 para 2 white female currently at 36-6/7 weeks gestation. She was seen in clinic today for routine follow-up with plans for repeat delivery tomorrow. Ultrasound showed a significantly decreased amniotic fluid index but more concerning showed a umbilical cord SD ratio of 4.12. Biophysical profile was 8/8. We discussed waiting until tomorrow for these plan due to her cholestasis of but elected to proceed with that delivery today in light of the elevated SD ratio. Patient denies rupture membranes or bleeding. Her GBS culture was positive. Allergies are none Medications are vitamins and ursodiol 300 mg twice a day Medical social and surgical history is all per the antepartum record HEENT exam is normal Neck is supple no lymphadenopathy no thyromegaly Abdomen is gravid soft nontender nondistended Extremities show no clubbing or cyanosis there is no Homans' sign Pelvic exam was deferred Lab work is as follows Laboratory Tests Test 10/26/20 11:32 Range/Units White Blood Count 5.9 4.3-11.0 10^3/uL Red Blood Count 3.30 L 3.80-5.11 10^6/uL Hemoglobin 8.7 L 11.5-16.0 g/dL Hematocrit 28 L 35-52 % Mean Corpuscular Volume 83 80-99 fL Mean Corpuscular Hemoglobin 26 25-34 pg Mean Corpuscular Hemoglobin Concent 32 32-36 g/dL Red Cell Distribution Width 14.0 10.0-14.5 % Platelet Count 200 130-400 10^3/uL Mean Platelet Volume 11.9 9.0-12.2 fL Immature Granulocyte % (Auto) 1 % Neutrophils (%) (Auto) 74 42-75 % Lymphocytes (%) (Auto) 18 12-44 % Monocytes (%) (Auto) 7 0-12 % Eosinophils (%) (Auto) 1 0-10 % Basophils (%) (Auto) 0 0-10 % Neutrophils # (Auto) 4.4 1.8-7.8 10^3/uL Lymphocytes # (Auto) 1.1 1.0-4.0 10^3/uL Monocytes # (Auto) 0.4 0.0-1.0 10^3/uL Eosinophils # (Auto) 0.0 0.0-0.3 10^3/uL Basophils # (Auto) 0.0 0.0-0.1 10^3/uL Immature Granulocyte # (Auto) 0.0 0.0-0.1 10^3/uL Assessment and plan 36-6/7 weeks gestation in a multigravid patient with 2 previous C-sections and with cholestasis of and with an elevated SD ratio on Doppler exam. Plan is to proceed now with repeat delivery Patient is mildly anemic and we will initiate iron replacement after delivery 36-6/7 weeks gestation with cholestasis of and an elevated SD ratio and 2 previous Allergies and Home Medications Allergies Coded Allergies: No Known Drug Allergies (Unverified , 03/15/17) Home Medications Nitrofurantoin Monohyd/M-Cryst 100 Mg Capsule, 100 MG PO DAILY, (Reported) Pedi Multivit No.7/Folic Acid 100 Mcg Tab.chew, 100 MCG PO DAILY, (Reported) Ursodiol 300 Mg Capsule, 300 MG PO BID, (Reported) Patient Home Medication List Home Medication List Reviewed: Yes ALICIA OWENS MD Oct 26, 2020 13:17
[2020-10-26] MEDS ORDERED: BUPIVACAINE 0.5% 30 ML (SENSORCAINE) VIAL ONE (13:41)
--- NOTE | 2020-10-26 14:55 | NUR ---
pt transferred from recovery room to [facility] via bed in stable condition accompanied by this rn. Oriented to room, sandwich tray provided. No further needs at this time.
[2020-10-26] MEDS ORDERED: OXYTOCIN PRE-MIX DRIP 500 ML IV ONE (14:59)
[2020-10-26] MEDS ORDERED: TETANUS,DIPTH,PERTUSS P/F (BOOSTRIX) 0.5 ML VIAL IM ONE (15:30)
[2020-10-26] MEDS ORDERED: OXYTOCIN PRE-MIX DRIP 500 ML IV SCH (15:30)
[2020-10-26] MEDS ORDERED: fentaNYL INJECTION 100 MCG/2 ML AMP IVP PRN (15:30)
[2020-10-26] MEDS ORDERED: MEASLES,MUMPS,RUBELLA 1 EA INJ SC ONE (15:30)
[2020-10-26] MEDS ORDERED: ONDANSETRON 4 MG/2 ML (SDV) Z0FRAN IVP PRN (15:30)
[2020-10-26] MEDS ORDERED: IBUP-1780 PO (15:33)
[2020-10-26] MEDS ORDERED: OXYC1TAB12 PO (15:33)
[2020-10-26] MEDS ORDERED: DCS100C PO (15:33)
--- NOTE | 2020-10-26 15:33 | Discharge Inst-Surgical ---
Discharge Inst-Surgical Depart Medication/Instructions New, Converted or Re-Newed RX: RX on Chart Consults/Follow Up Patient Instructions: As directed Orders & Referrals Follow Up Appt: RTC 1 week for incision check. Call to make follow up appt. for patient in 4 weeks. Wound Care: Remove rupa, apply benzoin and steri strips. Activity Per routine post instructions. Please call in RX to patient pharmacy. Diet as tolerated Patient may shower or tub bathe as desired. Continue home meds Activity Activity as Tolerated: No Diet Discharge Diet: No Restrictions ALICIA OWENS MD Oct 26, 2020 15:33
[2020-10-26] MEDS: KETOROLAC 30 MG/ML VIAL IVP SCH ×2 (15:38→20:58)
--- NOTE | 2020-10-26 16:40 | NUR ---
Pt to nursery to see via wheelchair accompanied by this rn and s/o.
[2020-10-26] MEDS: oxyCODONE/APAP 10/325MG (PERCOCET 10) TABLET PO PRN ×2 (17:13→21:33)
--- NOTE | 2020-10-26 18:50 | NUR ---
pt to nursery to see via ambulatory accompanied by s/o.
--- NOTE | 2020-10-26 20:09 | OPERATIVE REPORT ---
DATE OF SERVICE: 10/26/2020 PREOPERATIVE DIAGNOSIS: A 36 and 6/7 weeks' gestation with cholestasis of and 2 previous sections and abnormal testing. POSTOPERATIVE DIAGNOSIS: A 36 and 6/7 weeks' gestation with cholestasis of and 2 previous sections and abnormal testing. OPERATIVE PROCEDURE: Repeat low transverse delivery of a viable male with Apgars of 6 and 8 at 1 and 5 minutes respectively, weight of 7 pounds 2 ounces. Cord blood gas pH of 7.27 and a time of 1334. OPERATIVE DESCRIPTION: With the patient in the supine position under satisfactory spinal analgesia, the patient was prepped and draped in the usual fashion for abdominal surgery. Hamptno catheter was placed in the urinary bladder. A repeat Pfannenstiel incision was made through skin with scalpel, the patient's abdomen was entered in the usual manner. Bladder retractor placed in position. A clean scalpel was used to make a 4 cm hysterotomy incision transversely across the lower uterine segment that was extended by blunt dissection as well. A small amount of amniotic fluid that was clear, was released on hysterotomy. Dickerson forceps were applied to facilitate delivery of the male infant that was with stats as noted above. The infant was bulb suctioned on delivery of the head and again on completion of delivery. Umbilical cord was doubly clamped and cut and the passed to the pediatric nurse in attendance for delivery. Cord bloods were obtained. The placenta delivered spontaneously Hernandez. It was somewhat calcified, but otherwise appeared normal. There was a 3-vessel cord. The placenta was sent to pathology for permanent section. The uterus was exteriorized and interior wiped clean with a wet laparotomy sponge. Uterine incision then closed with running locked suture of 2-0 Vicryl. Hemostasis was complete. The uterus was returned to the abdominal cavity. All blood clot and debris removed from the abdominal cavity. With sponge and needle counts correct, hemostasis assured. The anterior parietal peritoneum was closed with running suture of 2-0 Vicryl. Rectus muscles were closed well. The rectus fascia was closed with 2-0 Vicryl, subcutaneous tissue was closed with 2-0 Vicryl and the skin was stapled. Sponge and needle counts were correct on completion of the procedure. Estimated blood loss was around 500 mL. The patient tolerated the procedure well and was transferred to recovery room in stable condition. The infant had been taken stable to the full-term nursery under the care of the pediatric nurse. Job ID: [id number] DocumentID: [id number] Dictated Date: 10/26/2020 14:49:53 Pediatric Allergist Date: 10/26/2020 20:08:18 Dictated By: ALICIA OWENS MD
[2020-10-26] MEDS: DOCUSATE SODIUM 100 MG (COLACE) CAP PO SCH (20:58)
[2020-10-26] MEDS ORDERED: DOCUSATE SODIUM 100 MG (COLACE) CAP PO SCH (21:00)
[2020-10-27 00:40] VITALS: BP 117/75
[2020-10-27 03:44] VITALS: BP 104/68
[2020-10-27] MEDS: KETOROLAC 30 MG/ML VIAL IVP SCH (03:44)
[2020-10-27] MEDS: oxyCODONE/APAP 10/325MG (PERCOCET 10) TABLET PO PRN ×3 (03:44→20:13)
--- NOTE | 2020-10-27 07:45 | Anesthesia-Regional Post-Op ---
Regional Patient Condition Mental Status: Alert, Oriented x3 Circulation: Same as Pre-Op Headache: Absent Sensation: Full Recovery Motor Block: Absent Post Op Complications Complications None Follow Up Care/Instructions Patient Instructions None needed. Anesthesia/Patient Condition Patient is doing well, no complaints, stable vital signs, no apparent adverse anesthesia problems. No complications reported per nursing. LUZ GREEN CRNA Oct 27, 2020 07:45
[2020-10-27] MEDS ORDERED: IBUPROFEN 800 MG (MOTRIN) TAB PO ONE (09:05)
[2020-10-27] MEDS: DOCUSATE SODIUM 100 MG (COLACE) CAP PO SCH ×2 (09:09→20:13)
[2020-10-27] MEDS: IBUPROFEN 800 MG (MOTRIN) TAB PO SCH ×3 (09:10→23:03)
--- NOTE | 2020-10-27 09:10 | NUR ---
here. new orders received.
[2020-10-27 09:15] VITALS: BP 112/77
--- NOTE | 2020-10-27 09:15 | NUR ---
initial shift assessment completed, see interventions for further. abd incision NATTY with clips D/I. incision edges well approximated with no sx's of infection noted.
--- NOTE | 2020-10-27 09:17 | Progress Note ---
Standard Progress Note Progress Notes/Assess & Plan Date Seen by a Provider: Oct 27, 2020 Time Seen by a Provider: 09:15 Progress/Assessment & Plan This patient is without complaint.She is ambulating, voiding, tolerating oral intake well and has good pain control. She denies chest pain, denies shortness of breath, denies nausea vomiting, and denies headache. Vital Signs Date Time Temp Pulse Resp B/P (MAP) Pulse Ox O2 Delivery O2 Flow Rate FiO2 10/27/20 03:44 36.5 66 16 104/68 (80) 98 Room Air 10/27/20 00:40 36.8 72 16 117/75 (89) 100 Room Air 10/26/20 20:57 36.9 69 16 118/69 (85) 98 Room Air 10/26/20 17:06 36.4 72 16 114/70 (85) 98 Room Air 10/26/20 14:44 Room Air 10/26/20 14:44 36.0 16 105/71 (82) 100 Room Air 10/26/20 14:29 Room Air 10/26/20 14:29 36.0 16 103/69 (80) 100 Room Air 10/26/20 14:14 Room Air 10/26/20 14:14 36.0 16 105/61 (76) 100 Room Air 10/26/20 13:59 Room Air 10/26/20 13:59 36.1 16 108/56 (73) 100 Room Air 10/26/20 11:15 37.0 81 18 99 Room Air I & O 10/27/20 07:00 Intake Total 3460 ml Output Total 2750 ml Balance 710 ml Vital signs are stable. Patient is afebrile. The abdomen is benign. The fundus is firm below the umbilicus and nontender. Extremities show no clubbing or cyanosis. There is no Homans' sign. Assessment and plan post operative day #1 status post repeat delivery at 36+ weeks gestation patient is doing well. Plan is for routine convalescent care ALICIA OWENS MD Oct 27, 2020 09:17
[2020-10-27] MEDS ORDERED: HYDROCORTISONE 2.5% CREAM (ANUSOL-HC) 30 GM TOP SCH (09:25)
--- NOTE | 2020-10-27 09:52 | NUR ---
CM/SS received consult for the patient's support system due to nursing assessment. CM/SS spoke with the patient's nurse. She reports the patient's is currently with her as her support. No consult needed. CM/SS will visit with patient is the need arises.
[2020-10-27 13:49] VITALS: BP 120/71
--- NOTE | 2020-10-27 17:59 | NUR ---
pt transferred to room 308 r/t thermostat issues.
--- NOTE | 2020-10-27 19:17 | NUR ---
REPORT GIVEN TO JACQUE RN
[2020-10-27] MEDS ORDERED: ONDANSETRON 4 MG (ZOFRAN) ORAL DISSOLVE TAB ONE (22:44)
--- NOTE | 2020-10-27 22:45 | NUR ---
Pt up to bathroom, report from pt symptoms of nausea, shakiness, itching. Oral dissolve zofran supplied, see emar. vss, see int. nausea resolved, motrin admin on schedule. will cont to monitor.
[2020-10-27 22:50] VITALS: BP 119/77
[2020-10-27] MEDS ORDERED: ONDANSETRON 4 MG (ZOFRAN) ORAL DISSOLVE TAB PO PRN (23:30)
[2020-10-28] MEDS: oxyCODONE/APAP 10/325MG (PERCOCET 10) TABLET PO PRN (02:07)
[2020-10-28 05:44] VITALS: BP 111/64
[2020-10-28] MEDS: IBUPROFEN 800 MG (MOTRIN) TAB PO SCH ×4 (05:44→23:12)
--- NOTE | 2020-10-28 07:56 | Progress Note ---
Standard Progress Note Progress Notes/Assess & Plan Date Seen by a Provider: Oct 28, 2020 Time Seen by a Provider: 07:54 Progress/Assessment & Plan This patient is without complaint.She is ambulating, voiding, tolerating oral intake well and has good pain control. She denies chest pain, denies shortness of breath, denies nausea vomiting, and denies headache. Vital Signs Date Time Temp Pulse Resp B/P (MAP) Pulse Ox O2 Delivery O2 Flow Rate FiO2 10/27/20 03:44 36.5 66 16 104/68 (80) 98 Room Air 10/27/20 00:40 36.8 72 16 117/75 (89) 100 Room Air 10/26/20 20:57 36.9 69 16 118/69 (85) 98 Room Air 10/26/20 17:06 36.4 72 16 114/70 (85) 98 Room Air 10/26/20 14:44 Room Air 10/26/20 14:44 36.0 16 105/71 (82) 100 Room Air 10/26/20 14:29 Room Air 10/26/20 14:29 36.0 16 103/69 (80) 100 Room Air 10/26/20 14:14 Room Air 10/26/20 14:14 36.0 16 105/61 (76) 100 Room Air 10/26/20 13:59 Room Air 10/26/20 13:59 36.1 16 108/56 (73) 100 Room Air 10/26/20 11:15 37.0 81 18 99 Room Air I & O 10/27/20 07:00 Intake Total 3460 ml Output Total 2750 ml Balance 710 ml Vital signs are stable. Patient is afebrile. The abdomen is benign. The fundus is firm below the umbilicus and nontender. Extremities show no clubbing or cyanosis. There is no Homans' sign. Assessment and plan post operative day #1 status post repeat delivery at 36+ weeks gestation patient is doing well. Plan is for routine convalescent care October 28, 2020 Patient is without complaint, except for itching after taking pain medication. She has good pain control. She denies chest pain, denies shortness of breath, denies nausea vomiting and denies headache. She is ambulating well and voiding well. Vital Signs Date Time Temp Pulse Resp B/P (MAP) Pulse Ox O2 Delivery O2 Flow Rate FiO2 10/28/20 05:44 37.0 85 18 111/64 (80) 97 Room Air 10/27/20 22:50 36.5 81 18 119/77 (91) 99 Room Air 10/27/20 13:49 36.5 83 18 120/71 (87) 99 Room Air 10/27/20 09:15 36.3 79 18 112/77 (89) 99 Room Air Vital signs are stable. Patient is afebrile. The abdomen is benign. The surgical incision is clean dry and intact. Extremities show no clubbing or cyanosis. There is no Homans' sign. Assessment and plan postoperative day #2 status post repeat delivery at 36 weeks gestation. We will change pain medication to lower set and also add Benadryl as needed itch. Continue convalescent care and consider discharge tomorrow ALICIA OWENS MD Oct 28, 2020 07:56
[2020-10-28] MEDS ORDERED: diphenhydrAMINE 25 MG TAB (BENADRYL) PO PRN (08:00)
[2020-10-28 08:10] VITALS: BP 104/61
[2020-10-28] MEDS: DOCUSATE SODIUM 100 MG (COLACE) CAP PO SCH ×2 (08:18→20:07)
[2020-10-28] MEDS: HYDROcodone/APAP 10 MG/325 MG (LORTAB) TAB PO PRN ×3 (08:19→20:08)
--- NOTE | 2020-10-28 09:00 | NUR ---
Report from Sachin Doss RN
[2020-10-28 12:24] VITALS: BP 105/56
[2020-10-28 18:07] VITALS: BP 122/58
[2020-10-28 23:12] VITALS: BP 118/71
[2020-10-29 04:15] VITALS: BP 123/75
[2020-10-29] MEDS: IBUPROFEN 800 MG (MOTRIN) TAB PO SCH ×2 (04:15→09:26)
[2020-10-29] MEDS: DOCUSATE SODIUM 100 MG (COLACE) CAP PO SCH (08:16)
[2020-10-29] MEDS: HYDROcodone/APAP 10 MG/325 MG (LORTAB) TAB PO PRN ×2 (08:17→14:23)
[2020-10-29 09:25] VITALS: BP 118/61
--- NOTE | 2020-10-29 10:41 | Progress Note ---
Standard Progress Note Progress Notes/Assess & Plan Date Seen by a Provider: Oct 29, 2020 Time Seen by a Provider: 10:40 Progress/Assessment & Plan This patient is without complaint.She is ambulating, voiding, tolerating oral intake well and has good pain control. She denies chest pain, denies shortness of breath, denies nausea vomiting, and denies headache. Vital Signs Date Time Temp Pulse Resp B/P (MAP) Pulse Ox O2 Delivery O2 Flow Rate FiO2 10/27/20 03:44 36.5 66 16 104/68 (80) 98 Room Air 10/27/20 00:40 36.8 72 16 117/75 (89) 100 Room Air 10/26/20 20:57 36.9 69 16 118/69 (85) 98 Room Air 10/26/20 17:06 36.4 72 16 114/70 (85) 98 Room Air 10/26/20 14:44 Room Air 10/26/20 14:44 36.0 16 105/71 (82) 100 Room Air 10/26/20 14:29 Room Air 10/26/20 14:29 36.0 16 103/69 (80) 100 Room Air 10/26/20 14:14 Room Air 10/26/20 14:14 36.0 16 105/61 (76) 100 Room Air 10/26/20 13:59 Room Air 10/26/20 13:59 36.1 16 108/56 (73) 100 Room Air 10/26/20 11:15 37.0 81 18 99 Room Air I & O 10/27/20 07:00 Intake Total 3460 ml Output Total 2750 ml Balance 710 ml Vital signs are stable. Patient is afebrile. The abdomen is benign. The fundus is firm below the umbilicus and nontender. Extremities show no clubbing or cyanosis. There is no Homans' sign. Assessment and plan post operative day #1 status post repeat delivery at 36+ weeks gestation patient is doing well. Plan is for routine convalescent care October 28, 2020 Patient is without complaint, except for itching after taking pain medication. She has good pain control. She denies chest pain, denies shortness of breath, denies nausea vomiting and denies headache. She is ambulating well and voiding well. Vital Signs Date Time Temp Pulse Resp B/P (MAP) Pulse Ox O2 Delivery O2 Flow Rate FiO2 10/28/20 05:44 37.0 85 18 111/64 (80) 97 Room Air 10/27/20 22:50 36.5 81 18 119/77 (91) 99 Room Air 10/27/20 13:49 36.5 83 18 120/71 (87) 99 Room Air 10/27/20 09:15 36.3 79 18 112/77 (89) 99 Room Air Vital signs are stable. Patient is afebrile. The abdomen is benign. The surgical incision is clean dry and intact. Extremities show no clubbing or cyanosis. There is no Homans' sign. Assessment and plan postoperative day #2 status post repeat delivery at 36 weeks gestation. We will change pain medication to lower set and also add Benadryl as needed itch. Continue convalescent care and consider discharge tomorrow October 29, 2020 See discharge summary Final Diagnosis 36-week repeat delivery ALICIA OWENS MD Oct 29, 2020 10:40
--- NOTE | 2020-10-29 10:44 | Discharge Summary ---
Discharge Summary 36 WEEK REPEAT DELIVERY This patient is a 24-year-old 3 para 2 white female who was seen on my clinic on October 26, 2020. She was at 36-6/7 weeks gestation with a complicated by cholestasis of . Ultrasound had shown a significantly decreased amniotic fluid index and more concerning had shown an elevated SD ratio. Decision was made to admit patient and proceed with delivery. Her GBS culture had been positive. She denies rupture membranes or bleeding. Patient was admitted on October 26, 2020 taken to the operating room for repeat that was performed without event patient recovered uneventfully. On postoperative day #1 the patient was ambulating, voiding, tolerating oral intake and had good pain control. She was stable through the day. On postoperative day #2 patient again was stable she was ambulating, voiding, tolerating oral intake and having good pain control. Now on postoperative day #3 patient again is ambulating well voiding well tolerating her oral intake well has good pain control and is requesting discharge home. Principal diagnosis this hospitalization repeat delivery at 36 weeks gestation Secondary diagnoses are nonreassuring testing, cholestasis of , previous x2, GBS positive culture Operations and procedures include monitoring, IV fluids, IV antibiotics, spinal analgesia, repeat delivery Patient was given appropriate discharge instructions verbally and in writing and a copy of those were placed in the chart. Discharge medications are Lorcet, Motrin, and Colace. Patient is to continue her home vitamin patient may stop her ursodiol ALICIA OWENS MD Oct 29, 2020 10:44
[2020-10-29] MEDS ORDERED: HYDR-4196 PO (12:19)
--- NOTE | 2020-10-29 12:45 | NUR ---
Discharge instructions, appointment reminders, and script for Loracet given. Ibuprofen and Colace called to [facility] in [place].Pt verbalizes understanding. 1345 Amanda removed except 1 - unable to remove, nursing machine assembler supervisor unable to remove, ER doctor will try when available. Benzoin applied then steri strips. Addendum: 10/29/20 at 1744 by MATHEUS COPE RN 1430 Remaining staple removed by Allyson Licona RN. 1500 Ambulated to exit. Accompanied by nursing machine assembler supervisor Adry and spouse.
[2020-10-29 16:25] VITALS: BP 118/61
== END 2020-10-29 15:00 | disposition home or self-care (01) | DRG 788 ==
LOC: LDRP 10:55
PROVIDERS: ADMIT Obstetrics & Gynecology; ATTEND Obstetrics & Gynecology
PROC: 10D00Z1 Extraction of Products of Conception, Low, Open Approach (ICD-10-PCS; principal; 2020-10-26 13:15)
DX: O60.14X0 Preterm labor third trimester with preterm delivery third trimester, not applicable or unspecified (principal); O34.211 Maternal care for low transverse scar from previous cesarean delivery; Z3A.36 36 weeks gestation of pregnancy; Z37.0 Single live birth; O99.02 Anemia complicating childbirth; D64.9 Anemia, unspecified; O99.62 Diseases of the digestive system complicating childbirth; K80.20 Calculus of gallbladder without cholecystitis without obstruction; O99.824 Streptococcus B carrier state complicating childbirth
CPT/HCPCS: 36415; 85025; 86850; 86900; 86901; 87081

== ENCOUNTER → 2022-10-22 | Outpatient (CLI) | payer BC, MEDICAID ==
[~2022-10-22] MED LIST changes: +DOCU-239 PO; +HYDR-4196 PO
--- NOTE | 2022-10-23 09:20 | Diagnostic Imaging Report ---
TECHNIQUE: Routine transabdominal ultrasound. REASON FOR EXAM: Supervision of normal . Evaluate age. COMPARISON: None. CLINICAL DATES: Gestational age 8 weeks, 3 days, with an ROCAEL of 05/31/2023 FINDINGS: A single live intrauterine gestation is present with a CRL of 1.0 cm. This corresponds with an estimated gestational age of 7 weeks 1 days and ROCAEL of 06/09/2023. heart rate is 123 bpm. A yolk sac is visualized. The gestational sac demonstrates normal contours. A formal anatomic survey was not performed. No abnormalities are present. The bilateral ovaries are well visualized and have a normal appearance. The right ovary measures 3.1 x 1.7 x 2.2 cm. The left ovary measures 3.8 x 2.4 x 2.7 cm. A likely corpus luteal cyst is seen within the left ovary measuring 1.6 x 1.2 x 2.0 cm. No free fluid is visualized within the posterior cul-de-sac. IMPRESSION: 1. Single live intrauterine gestation with EGA of 7 weeks, 1 days and estimated due date of 06/09/2023. These are somewhat discordant with the clinical dates. Recommend continued follow-up. 2. Likely corpus luteal cyst in the left ovary. Dictated by: Dictated on workstation # [id number]
== END ==
LOC: RAD 14:23
PROVIDERS: ATTEND Obstetrics & Gynecology
DX: Z34.81 Encounter for supervision of other normal pregnancy, first trimester (principal); Z3A.01 Less than 8 weeks gestation of pregnancy
CPT/HCPCS: 76801; 76817

== ENCOUNTER 2022-12-18 19:57 | Emergency (ER) | payer MEDICAID ==
[~2022-12-18] VITALS: Ht 157 cm; Wt 68.0 kg
[2022-12-18 20:40] LABS: BILIRUBIN,URINE NEGATIVE (NEGATIVE); CLARITY,URINE CLEAR; COLOR,URINE YELLOW; GLUCOSE, URINE (UA) NEGATIVE (NEGATIVE); KETONES,URINE NEGATIVE (NEGATIVE); LEUKOCYTE ESTERASE ,URINE TRACE (NEGATIVE); NITRITE,URINE NEGATIVE (NEGATIVE); PROTEIN,URINE NEGATIVE (NEGATIVE)
[2022-12-18 20:51] LABS: WBC,URINE 0-2 /HPF
[2022-12-18 20:52] LABS: AMORPHOUS SEDIMENT,UR FEW AMOR PHOSPHATE /LPF; BACTERIA,URINE FEW /HPF; SQUAMOUS EPITHELIAL CELL,UR 0-2 /HPF
--- NOTE | 2022-12-18 21:46 | ED GI ---
General Chief Complaint: Abdominal/GI Problems Stated Complaint: UNABLE TO URINATE, BACK PAIN, SOB, LIGHTHEADED Nursing Triage Note: PT AMB TO TRIAGE WITH C/O LOW BACK PAIN AND CONSTIPATION SINCE THIS MORNING. PT STATES SHE HAS NOT BEEN ABLE TO HAVE A BM FOR AT LEAST A COUPLE OF DAYS Source of Information: Patient, Old Records Exam Limitations: No Limitations (GRACIELA SIEGEL) History of Present Illness Date Seen by Provider: Dec 18, 2022 Time Seen by Provider: 21:20 Initial Comments Mrs. Horvath is a 27 yo F with PMH of 3 c-sections and is currently 15wks who presents to the ED with non-radiating, cramping lower abdominal and back pain with urge to defecate w/o BM for 1 day. She also has been unable to pass flatus since 5pm today. She also states that it is difficult to draw in a deep breath due to abdominal fullness. She reports daily nausea associated with her current for which she has been taking Zofran. She took a single dose of Mirilax per bottle instructions mixed with apple juice this afternoon w/o improvement. She states this is her first episode of constipation and that she typically has very loose stools. She denies F/C/D or changes in vision. Timing/Duration: 1 Day Severity/Quality: Moderate, Cramping, Dull, Full Location: Generalized Abdomen, Suprapubic Radiation: LLQ, Back Activities at Onset: None Modifying Factors: Worsens With Palpation Associated Symptoms: Back Pain; No Fever/Chills (GRACIELA SIEGEL) Initial Comments This 27-year-old young lady is a 4 para 3 who is concerned about possible constipation. She does not recall having a bowel movement in at least for 5 days. She has a constant feeling of pressure today but is unable to produce a bowel movement. She has had nausea throughout the but has not been vomiting in recent days. She does take Zofran which may be contributing to constipation. She tried taking a dose of MiraLAX today without results. She was directed to the emergency room by Dr. OWENS's office. She has a pending appointment with Dr. OWENS when he returns to practice in [place]. She is not in distress and her abdomen is not significantly tender. (TANNA NAVA MD) Allergies and Home Medications Allergies Coded Allergies: No Known Drug Allergies (Unverified , 03/15/17) Patient Home Medication List Home Medication List Reviewed: Yes (TANNA NAVA MD) Docusate Sodium (Dok) 100 Mg Capsule, 100 MG PO BID Prescribed by: ALICIA REGAN on 10/26/20 1533 Doxylamine/Pyridoxine HCl (Diclegis Dr 10-10 mg Tablet) 10 Mg-10 Mg Tablet.dr, 1 EACH PO HS Prescribed by: TANNA LOUIE on 12/18/22 2222 Hydrocodone/Acetaminophen ([place] 10-325 Tablet) 1 Each Tablet, 1 TAB PO Q4H PRN for PAIN-MODERATE (5-7) Prescribed by: MATHEUS COPE on 10/29/20 1219 Ibuprofen (Ibuprofen) 800 Mg Tablet, 800 MG PO Q6H Prescribed by: ALICIA REGAN on 10/26/20 1533 Nitrofurantoin Monohyd/M-Cryst (Nitrofurantoin [place]-Mcr 100 mg) 100 Mg Capsule, 100 MG PO DAILY, (Reported) Entered as Reported by: ERIC LI on 09/17/20 2332 Pedi Multivit No.7/Folic Acid ([place] Multi-Vit Gummies) 100 Mcg Tab.chew, 100 MCG PO DAILY, (Reported) Entered as Reported by: GEORGE MORALES on 07/07/20 1100 Review of Systems Review of Systems Constitutional: No chills, No fever EENTM: No Blurred Vision Respiratory: Denies Cough; Shortness of Air Cardiovascular: Denies Chest Pain, Denies Lightheadedness Gastrointestinal: Abdomen Distended, Constipated; Denies Diarrhea; Nausea, Poor Appetite; Denies Vomiting Genitourinary: Denies Burning, Denies Discharge; Flank Pain Musculoskeletal: back pain; No muscle pain Skin: No change in color, No lesions, No rash Psychiatric/Neurological: Denies Headache, Denies Numbness, Denies Tremors, Denies Weakness Endocrine: Denies Excessive Sweating, Denies Flushing, Denies Increased Urine (GRACIELA SIEGEL) Past Ophqcpz-Uscxkm-Ujguwl Hx Patient Social History Tobacco Use?: No Use of E-Cig and/or Vaping dev: No Substance use?: No Alcohol Use?: No Pt feels they are or have been: No (GRACIELA SIEGEL) Immunizations Up To Date Tetanus Booster (TDap): Less than 5yrs PED Vaccines UTD: Yes Influenza Vaccine Up-to-Date: No; Not Current (GRACIELA SIEGEL) Seasonal Allergies Seasonal Allergies: No (GRACIELA SIEGEL) Past Medical History Surgery/Hospitalization HX: C SECTION X3, APPY, ISA, EX LAP Surgeries: Yes (DXLS X2, c/s x2) Adenoidectomy, Appendectomy, Section, Tonsillectomy Respiratory: No Cardiac: No Neurological: No Expected Date of Delivery: Jun 10, 2023 Last Menstrual Period: Aug 05, 2022 Reproductive Disorders: Yes Female Reproductive Disorders: Endometriosis, Polycystic Ovarian Dis Sexually Transmitted Disease: No HIV/AIDS: No Genitourinary: No UTI-Chronic Gastrointestinal: No Musculoskeletal: No Endocrine: No HEENT: No Loss of Vision: Bilateral Hearing Impairment: Denies Cancer: No Psychosocial: No Integumentary: No Blood Disorders: Yes (HX ANEMIA) Adverse Reaction/Blood Tranf: No (N/A) (GRACIELA SIEGEL) Family Medical History Alcoholism grandparents Cardiovascular disease grandparents Diabetes mellitus grandparents Hypertension grandparents Myocardial infarction grandparents No Pertinent Family Hx (GRACIELA SIEGEL) Physical Exam Vital Signs Vital Signs - First Documented 12/18/22 12/18/22 20:20 22:28 Temp 37.0 Pulse 70 Resp 14 B/P (MAP) 137/91 (106) O2 Delivery Room Air (TANAN NAVA MD) Vital Signs Capillary Refill : (GRACIELA SIEGEL) Height/Weight/BMI Height: 5'2.00" Weight: 143lbs. 4.0oz. [id number]; 27.00 BMI Method:Stated General Appearance: WD/WN, no apparent distress HEENT: PERRL/EOMI Neck: non-tender, full range of motion, supple Respiratory: chest non-tender, lungs clear, normal breath sounds, no respiratory distress Cardiovascular: regular rate, rhythm, no edema, no murmur Peripheral Pulses: 2+ Radial Pulses (R), 2+ Radial Pulses (L) Gastrointestinal: normal bowel sounds, non tender, soft, no organomegaly, no pulsatile mass, other (LLQ deep palpation produces pain, RUQ tympanic) Extremities: normal range of motion, non-tender, no calf tenderness Back: no CVA tenderness, no vertebral tenderness Neurologic/Psychiatric: electric distribution engineer II-XII nml as tested, no motor/sensory deficits, alert, normal mood/affect, oriented x 3 Skin: normal color, warm/dry Lymphatic: no adenopathy (GRACIELA SIEGEL) Progress/Results/Core Measures Results/Orders Lab Results Laboratory Tests Test 12/18/22 20:30 Range/Units Urine Color YELLOW Urine Clarity CLEAR Urine pH 7.0 5-9 Urine Specific [place] 1.010 L 1.016-1.022 Urine Protein NEGATIVE NEGATIVE Urine Glucose (UA) NEGATIVE NEGATIVE Urine Ketones NEGATIVE NEGATIVE Urine Nitrite NEGATIVE NEGATIVE Urine Bilirubin NEGATIVE NEGATIVE Urine Urobilinogen 0.2 < = 1.0 MG/DL Urine Leukocyte Esterase TRACE H NEGATIVE Urine RBC (Auto) NEGATIVE NEGATIVE Urine RBC NONE /HPF Urine WBC 0-2 /HPF Urine Squamous Epithelial Cells 0-2 /HPF Urine Crystals PRESENT H /LPF Urine Amorphous Sediment FEW JALIL PHOSPHATE H /LPF Urine Bacteria FEW H /HPF Urine Casts NONE /LPF Urine Mucus NEGATIVE /LPF Urine Culture Indicated YES (TANNA NAVA MD) My Orders Orders - TANNA NAVA MD Ua Culture If Indicated (12/18/22 20:33) Urine Culture (12/18/22 20:30) (TANNA NAVA MD) Vital Signs/I&O 12/18/22 12/18/22 20:20 22:28 Temp 37.0 37.0 Pulse 70 68 Resp 14 14 B/P (MAP) 137/91 (106) 137/91 O2 Delivery Room Air (TANNA NAVA MD) Blood Pressure Mean: 106 Progress Progress Note : Progress Note Urinalysis was reviewed and was unremarkable. We discussed strategies for combating constipation and reviewed return precautions should her symptoms worsen or not resolved. See discharge instructions for further discussion. She has successfully used likely just for associated nausea in the past. A prescription was provided to use this again. heart tones obtained by MS4 were in the 140s. (TANNA NAVA MD) Departure Impression Primary Impression: Abdominal pain during Qualified Codes: O26.891 - Other specified related conditions, first trimester; R10.9 - Unspecified abdominal pain Additional Impression: Constipation Qualified Codes: K59.00 - Constipation, unspecified Disposition: 01 HOME, SELF-CARE Condition: Stable Departure-Patient Inst. Referrals: RAVINDER JUAREZ DO (PCP/Family) Primary Care Physician Patient Instructions: Constipation in Adults Add. Discharge Instructions: Consume primarily a clear liquid diet until you have a good bowel movement. Consume plenty of clear liquids to stay well-hydrated. You may increase MiraLAX (polyethylene glycol) dosing to 3 or 4 doses a day until you produce a good bowel movement. You may also add a Dulcolax (bisacody l) suppository daily. Feel free to use Tylenol (acetaminophen) up to 1000 mg every 6 hours as needed to treat pain. Treating pain may help you relax and produce a bowel movement. Continue consuming a high-fiber diet that includes plenty of fruits, vegetables, and whole grains. Avoid excessive meats, cheeses, processed foods, and fast foods. Remaining active also helps promote bowel movements. Try to avoid Zofran as it may cause constipation and some women. Instead, use Diclegis as prescribed. Discuss further treatment of constipation with your welding machine operator gas at your follow- up appointment. Return to care if you have worsening symptoms despite following these instructions. All discharge instructions reviewed with patient and/or family. Voiced unders tanding. Scripts Doxylamine/Pyridoxine HCl (Diclegis Dr 10-10 mg Tablet) 10 Mg-10 Mg Tablet.dr 1 EACH PO HS, #30 TAB Prov: TANNA NAVA MD 12/18/22 Medical Student Attestation and Attending Note: I have personally interviewed and examined this patient along with Graciela Siegel, MS4. I have reviewed student documentation including history, physical, and assessments. I agree with the documentation except where otherwise noted. Exam: General: Alert, oriented, no acute distress, well developed HEENT: Normocephalic and atraumatic Heart: Regular rate and rhythm without murmur Lungs: Clear to auscultation bilaterally with normal effort Abdomen: Soft, nontender, nondistended, normal bowel sounds, appropriately gravid for gestational age Neuropsych: Alert, oriented, no focal deficits Skin: Warm and dry without rashes (TANNA NAVA MD) GRACIELA SIEGEL Dec 18, 2022 21:46 TANNA NAVA MD Dec 18, 2022 22:22
[2022-12-18] MEDS ORDERED: DOXY1TAB3 PO (22:22)
[2022-12-18 22:28] VITALS: BP 137/91
== END 2022-12-18 22:28 | disposition home or self-care (01) ==
LOC: EDUNIT# 19:57 → ER 19:59
DX: O99.612 Diseases of the digestive system complicating pregnancy, second trimester (principal); R10.32 Left lower quadrant pain; K59.00 Constipation, unspecified; Z90.49 Acquired absence of other specified parts of digestive tract; Z3A.15 15 weeks gestation of pregnancy
CPT/HCPCS: 81000; 87077; 87088